=== PATIENT | male | born 1970 | race Hispanic/Latino ===

== ENCOUNTER 2018-10-16 18:13 | Emergency (ER) | payer MEDICARE, OTHER | END 2018-10-16 19:46 | disposition left against medical advice (07) | LOC: ERS 18:13 | DX: Z53.21 Procedure and treatment not carried out due to patient leaving prior to being seen by health care provider (principal) ==

== ENCOUNTER 2018-11-14 11:13 | Outpatient (CLI) | payer MEDICARE, MEDICAID ==
[2018-11-14 13:01] LABS: Mean Corpuscular HGB CONC 32.4 g/dL (32.0-36.0); Mean Corpuscular Hemoglobin 30.5 pg (27.0-31.0); Mean Corpuscular Volume 94.3 fL (78.0-98.0); Mean Platelet Volume 7.3 fL (7.4-10.4); Platelet Count 292 thou/uL (130-400); RBC Distribution Width 14.2 % (11.5-14.5); Red Blood Cell (RBC) Count 4.58 mill/uL (4.70-6.10)
[2018-11-14 13:41] LABS: Anion Gap 16 mmol/L (10-20); BUN (Urea Nitrogen) 21 mg/dL (8.9-20.6); Calc. Creatinine Clearance 0 mL/min (70-130); Calcium 9.7 mg/dL (7.8-10.44); Carbon Dioxide 24 mmol/L (22-29); Chloride 93 mmol/L (98-107); Estimated GFR-MDRD 10; Glucose 184 mg/dL (70-105); Potassium 3.7 mmol/L (3.5-5.1); Sodium 129 mmol/L (136-145)
== END 2018-11-14 11:14 | disposition home or self-care (01) ==
LOC: LABBT 11:13
PROVIDERS: ATTEND Thoracic Surgery (Cardiothoracic Vascular Surgery)
DX: Z01.812 Encounter for preprocedural laboratory examination (principal); N18.6 End stage renal disease
CPT/HCPCS: 80048; 85027

== ENCOUNTER 2018-11-21 12:40 | Outpatient (CLI) | payer MEDICARE, MEDICAID ==
[2018-11-21 13:07] LABS: Hemoglobin 13.8 g/dL (14.0-18.0); Mean Corpuscular HGB CONC 32.7 g/dL (32.0-36.0); Mean Corpuscular Hemoglobin 30.7 pg (27.0-31.0); Mean Corpuscular Volume 93.8 fL (78.0-98.0); Mean Platelet Volume 7.2 fL (7.4-10.4); Platelet Count 284 thou/uL (130-400); RBC Distribution Width 14.1 % (11.5-14.5); White Blood Cell (WBC) Count 8.7 thou/uL (4.8-10.8)
[2018-11-21 13:29] LABS: Anion Gap 14 mmol/L (10-20); BUN (Urea Nitrogen) 23 mg/dL (8.9-20.6); Calc. Creatinine Clearance 0 mL/min (70-130); Calcium 9.4 mg/dL (7.8-10.44); Carbon Dioxide 33 mmol/L (22-29); Chloride 93 mmol/L (98-107); Estimated GFR-MDRD 11; Glucose 334 mg/dL (70-105); Sodium 136 mmol/L (136-145)
== END 2018-11-21 12:41 | disposition home or self-care (01) ==
LOC: LABBT 12:40
PROVIDERS: ATTEND Thoracic Surgery (Cardiothoracic Vascular Surgery)
DX: Z01.812 Encounter for preprocedural laboratory examination (principal); N18.6 End stage renal disease
CPT/HCPCS: 80048; 85027

== ENCOUNTER 2018-11-25 05:45 | Day surgery (SDC) | payer MEDICARE, MEDICAID ==
[2018-11-14 11:39] VITALS: BMI 32.9
[2018-11-25] MEDS ORDERED: Lidocaine 1% (PF) 30 ML VIAL ONE (06:40)
[2018-11-25] MEDS ORDERED: Morphine 2 MG/ML SYRINGE ONE ×2 (07:52→09:57)
[2018-11-25] MEDS ORDERED: HYDROcodone/Acetaminophen 5/325 mg Tablet ONE (09:18)
--- NOTE | 2018-11-25 09:41 | OP ---
DATE OF PROCEDURE: 11/25/2018 PREOPERATIVE DIAGNOSIS: Ischemic and renal dialysis. PROCEDURE: Bilateral upper extremity angiogram. ANESTHESIA: 1% lidocaine, local. FLUORO: 7.9 minutes. CONTRAST: 40 mL. DESCRIPTION OF PROCEDURE: After prepping and draping, 1% lidocaine was used to infiltrate the right groin, where an ultrasound-guided puncture was carried out. Wire was passed, 5-Kiswahili dilator and sheath. A long-angled glide catheter was advanced over a Glidewire and the catheter was then advanced into the left subclavian, doing injections as the catheter was intermittently advanced. After completing the runoff of the left arm, attention was turned to cannulating the right innominate and right subclavian, then right axillary artery and runoff of the right arm was obtained with and without compression of the fistula. Following this, the catheter was withdrawn and once again advanced down the left subclavian into the left brachial artery, where hand visualization was performed. FINDINGS: Normal right innominate subclavian, common carotid origin, axillary, brachial artery. Radial and ulnar arteries were patent and at the level of the wrist, the vessels became small with poor runoff into the hand. Vessels were calcified throughout the arm. Left upper extremity, left subclavian and vertebral arteries were normal. Left axillary and brachial arteries were normal with calcification. Left ulnar artery about 70% stenosis with runoff into the hand through incomplete arches with digital small vessel stenosis uniformly in these digital vessels. Job ID: [id number]
[2018-11-25] MEDS ORDERED: Iopamidol 370 76% 50 ML VIAL FS ONE (10:32)
== END 2018-11-25 14:30 | disposition home or self-care (01) ==
LOC: CCL 05:45
PROVIDERS: ATTEND Thoracic Surgery (Cardiothoracic Vascular Surgery)
PROC: B3111ZZ Fluoroscopy of Right Brachiocephalic-Subclavian Artery using Low Osmolar Contrast (ICD-10-PCS; principal; 2018-11-25)
PROC: B3121ZZ Fluoroscopy of Left Subclavian Artery using Low Osmolar Contrast (ICD-10-PCS; 2018-11-25)
DX: I12.0 Hypertensive chronic kidney disease with stage 5 chronic kidney disease or end stage renal disease (principal); E11.22 Type 2 diabetes mellitus with diabetic chronic kidney disease; N18.6 End stage renal disease; F31.9 Bipolar disorder, unspecified; E11.622 Type 2 diabetes mellitus with other skin ulcer; L98.499 Non-pressure chronic ulcer of skin of other sites with unspecified severity; Z86.73 Personal history of transient ischemic attack (TIA), and cerebral infarction without residual deficits; Z87.891 Personal history of nicotine dependence; Z79.01 Long term (current) use of anticoagulants; Z79.4 Long term (current) use of insulin; Z79.82 Long term (current) use of aspirin; Z79.899 Other long term (current) drug therapy; Z88.8 Allergy status to other drugs, medicaments and biological substances; Z95.810 Presence of automatic (implantable) cardiac defibrillator; Z89.021 Acquired absence of right finger(s); Z99.2 Dependence on renal dialysis
CPT/HCPCS: 36216; 36217; 75716; C1725; C1769; C1887; J1644; J2001; J2270; Q9967

== ENCOUNTER 2018-12-23 13:30 | Day surgery (SDC) | payer MEDICARE, MEDICAID ==
--- NOTE | 2018-12-22 08:10 | HP ---
HISTORY OF PRESENT ILLNESS: Frandy Daniel is a 48-year-old male patient, dialyzing Saturday, Saturday, and Saturday at [facility] in [facility]. The patient has severe PAD. He has a history of narcotic use and we avoided narcotics with him. In February 2015, he had a right Maki fistula, noting a calcified radial artery. The patient more recently has developed problems with poor circulation to his hand. He has undergone amputation of one of the fingers to his hand. Dr. Wolf saw him and an arteriogram performed on 11/25/2018 revealed normal central arterial circulation with very small vessel runoffs in right hand and incomplete palmar arch and small digital vessels. As stated above, the patient has had amputation of one of his fingers of the right hand and has eschar at the tip of the thumb and middle finger. These are indicative of ischemic disease. He has already had partial amputation of one of his fingers. He has good thrill and bruit in his fistula. He has a weak community recreation coordinator, but fairly good mobility of his right hand. Left wrist reveals a palpable radial pulse. Vein mapping of left arm in the past revealed fairly good veins in the left arm. Exam reveals cephalic vein acceptable, but due to calcific vessels and weak radial pulse left, we will plan more proximal fistula in left arm. Plan at this time is ligation of his right Maki fistula, placement of a hemodialysis catheter, and establish one of the left arm fistula more proximal to volar forearm. We did consider possible thigh dialysis graft. The patient has hair on his toes, good femoral pulses bilaterally, and palpable pedal pulses. Plan at this time is to attempt left arm fistula. If he develops an arterial still or ischemia, consideration could be given for a DRIL procedure versus conversion to a thigh graft. Consideration of peritoneal dialysis was discussed, but the patient's dexterity and home conditions do not allow this. MEDICATIONS: 1. Fluoxetine 10 mg a day. 2. Amlodipine 10 mg a day. 3. Dialyvite daily. 4. Levemir insulin 25 units subcu twice a day. 5. Metoprolol 100 mg twice a day. 6. Hydralazine 10 mg t.i.d. 7. Clonidine 0.1 mg twice a day. 8. Atorvastatin 40 mg a day. 9. Aspirin 325 mg a day. 10. Coumadin 10 mg tablet; one-half tablet daily, except two tablets on Saturday, , and Saturday. PAST MEDICAL HISTORY: PAD; hyperlipidemia; hypertension; history of prior strokes; history of narcotic addiction; depression; diabetes; end-stage renal disease, dialyzes Saturday, Saturday, and Saturday at [facility] 4 p.m.; bipolar disorder; AICD; and chronic anticoagulation. ALLERGIES: AMBIEN GI UPSET. PAST SURGICAL HISTORY: Cholecystectomy, pacemaker, defibrillator, hemodialysis catheter, right Maki fistula, and finger amputation. SOCIAL HISTORY: Tobacco, none since 2010, has abused prior to that. Alcohol, none. PHYSICAL EXAMINATION: VITAL SIGNS: Weight 203 pounds, height 66 inches, 32 BMI, blood pressure 111/65, heart rate 60, and temperature 97 degrees. HEAD, EARS, EYES, NOSE, AND THROAT: Unremarkable. LUNGS: Clear to auscultation. CARDIAC: Regular rate and rhythm without murmur or gallop. ABDOMEN: Soft and nontender. Good bowel sounds. No hernias. EXTREMITIES: A right Maki fistula present with good thrill and bruit. Right hand warm, good thrill and bruit. Normal capillary refill. Unhindered hand movement. Eschar at the tip of the thumb and middle finger of right hand. Weak radial and ulnar pulses in left wrist. Good femoral pulses bilaterally. I cannot feel his popliteal pulse, but I can palpate a good dorsalis pedis pulse, left superior to right. ASSESSMENT AND PLAN: Ischemic right hand. We will plan ligation of his fistula as his palmar arch is incomplete and digital vessels are small, severe calcific arterial disease in radial and ulnar artery with tapering vessels distally toward the wrist. I think the only option to salvage his hand is to ligate his right arm fistula. We will plan a left arm fistula and hemodialysis catheter. He is not a candidate for peritoneal dialysis at this time. Job ID: [id number]
[2018-12-22 14:11] VITALS: BMI 32.8
[~2018-12-23 13:30] MED LIST: Heparin 10,000 UNITS/ 10 ML VIAL ONE; Lidocaine 1% PF 5 ML VIAL ONE; PHENYLEPHRINE-NS 100 MCG/ML 10 ML SYRINGE ONE; PROPOFOL 200 MG/20 ML VIAL ONE; ePHEDrine 50 MG/ML VIAL ONE
[2018-12-23 14:16] LABS: #Eosinphils 0.2 thou/uL (0.0-0.7); #Lymphocytes 1.8 thou/uL (1.20-3.40); #Monocytes 0.7 thou/uL (0.11-0.59); #Neutrophils 5.8 thou/uL (1.40-6.50); %Basophils 0.4 % (0.0-1.0); %Eosinophils 2.8 % (0.0-10.0); %Lymphocytes 21.2 % (21.0-51.0); %Monocytes 8.2 % (0.0-10.0); %Neutrophils 67.4 % (42.0-75.0); Hemoglobin 13.2 g/dL (14.0-18.0); Mean Corpuscular HGB CONC 33.1 g/dL (32.0-36.0); Mean Corpuscular Hemoglobin 30.6 pg (27.0-31.0); Mean Corpuscular Volume 92.5 fL (78.0-98.0); Mean Platelet Volume 7.2 fL (7.4-10.4); Platelet Count 299 thou/uL (130-400); RBC Distribution Width 14.2 % (11.5-14.5); Red Blood Cell (RBC) Count 4.33 mill/uL (4.70-6.10); White Blood Cell (WBC) Count 8.6 thou/uL (4.8-10.8)
[2018-12-23 14:35] LABS: Anion Gap 14 mmol/L (10-20); BUN (Urea Nitrogen) 33 mg/dL (8.9-20.6); Calc. Creatinine Clearance 15 mL/min (70-130); Calcium 9.1 mg/dL (7.8-10.44); Carbon Dioxide 31 mmol/L (22-29); Chloride 97 mmol/L (98-107); Estimated GFR-MDRD 8; Glucose 109 mg/dL (70-105); Potassium 4.6 mmol/L (3.5-5.1); Sodium 137 mmol/L (136-145)
[2018-12-23 15:08] LABS: PTT 30.4 SEC (22.9-36.1); Prothrombin Time 13.8 SEC (12.0-14.7)
[2018-12-23] MEDS ORDERED: Lidocaine 2% PF 5 ML VIAL ONE (17:14)
[2018-12-23] MEDS ORDERED: Ioversol 68 % 50 ML VIAL ONE (17:14)
[2018-12-23] MEDS ORDERED: Milrinone 10 MG/10 ML VIAL ONE (17:14)
[2018-12-23] MEDS ORDERED: Heparin 10,000 UNITS/1 ML VIAL ONE (17:14)
[2018-12-23] MEDS ORDERED: Heparin 5,000 UNITS/ML VIAL ONE (17:14)
[2018-12-23] MEDS ORDERED: Sodium Chloride 0.9% 20 ML ONE (17:14)
[2018-12-23] MEDS ORDERED: Bupivacaine HCl 0.5%/Epinephrine 1:200,000/PF 30 ml Vial ONE (17:14)
[2018-12-23] MEDS ORDERED: Protamine Sulfate 50 MG/5 ML VIAL ONE (17:15)
[2018-12-23] MEDS ORDERED: Bupivacaine/Epinephrine 0.25% 30 ML VIAL ONE (17:34)
[2018-12-23] MEDS ORDERED: Fentanyl 100 MCG/2 ML VIAL ONE (18:04)
[2018-12-23] MEDS ORDERED: Midazolam HCl 2 mg/2 ml Vial ONE (18:04)
[2018-12-23] MEDS ORDERED: ePHEDrine/0.9% NaCl/PF SYRINGE 50 mg/10 ml ONE (20:06)
[2018-12-23] MEDS ORDERED: Heparin 10,000 UNITS/ 10 ML VIAL ONE (20:20)
--- NOTE | 2018-12-23 20:39 | RAD ---
CHEST ONE VIEW 12/23/18 HISTORY: Catheter placement. COMPARISON: 11/12/16. FINDINGS: The cardiac silhouette is magnified and enlarged. Pulmonary vasculature is engorged and accentuated b y shallow expiration. Mediastinum is midline with a single lead left subclavian defibrillator. Large caliber right internal jugular central venous catheter is now in place with tips overlying the right atrium. No evidence of pneumothorax. IMPRESSION: Right internal jugular dialysis catheter is in good radiographic position. Cardiomegaly with pulmonary vascular congestion. POS: TERRY
--- NOTE | 2018-12-24 01:25 | OP ---
DATE OF PROCEDURE: 12/23/2018 PREOPERATIVE DIAGNOSES: 1. End-stage renal disease. 2. Peripheral arterial disease. 3. Incomplete palmar arch ischemic right hand arterial steal secondary to peripheral arterial disease. POSTOPERATIVE DIAGNOSES: 1. End-stage renal disease. 2. Peripheral arterial disease. 3. Incomplete palmar arch ischemic right hand arterial steal secondary to peripheral arterial disease. PROCEDURE PERFORMED: Ligation of right Maki fistula. Right IJ cuffed tunneled hemodialysis catheter, fluoroscopy and ultrasound used. Left arm primary fistula, perforating branch antecubital vein to proximal radial artery of excellent quality without apparent arteriosclerotic disease outflow for anatomic reasons, primarily the cephalic vein upper arm secondary to basilic vein, retrograde antecubital vein of good caliber and left intact. ANESTHESIA: General, local 0.25% Marcaine with epinephrine 60 mL mixed with 2% Xylocaine 10 mL. DESCRIPTION OF PROCEDURE: The patient was taken to the operating room, where under general anesthesia, right upper extremity, neck and chest were prepped with ChloraPrep, draped in routine fashion. Ultrasound guidance was used to cannulate the right internal jugular vein with J-wire threaded, trocar catheter removed, skin was enlarged sharply. Stab incision was made over the right chest using a tunneling device, pre-curved [employer] cuffed-tunneled hemodialysis catheter tunneled between the two incisions, placed the fabric cuff beneath the skin exit site, and catheter secured with 2 interrupted sutures of 3-0 nylon and sterile dressings applied. Small and medium size dilators were placed over the J-wire into the internal jugular vein and removed. Dilator and Peel-Away sheath placed with J-wire into the superior vena cava. Dilator and J-wire were removed. Catheter was placed through the Peel-Away sheath. Peel-Away sheath removed. Fluoroscopically, catheter noted to be in good position. Each port aspirated blood and flushed with heparinized saline solution 1000 units heparin per mL indicating volume of the port. Platysma was approximated with 4-0 Monocryl, skin with subdermal 4-0 Monocryl, and [place] glue applied. Sterile dressing applied. Attention was then turned to the right wrist. Incision was made in the right wrist through the old scar and carried down the skin and subcutaneous tissue, Maki fistula dissected free, ligated with 2-0 silk ties. Subcutaneous tissue was approximated with 3-0 Monocryl, skin with subdermal 4-0 Monocryl, and [place] glue applied. Local anesthetic infiltrated. Left upper extremity was then prepared with ChloraPrep and draped in routine fashion. Proximal volar incision was made skin and subcutaneous tissue above the antecubital fossa and antecubital vein was of good caliber. Perforating branch was dissected free and branches were divided and doubly clipped. The patient was given 6000 units of heparin intravenously. Proximal radial artery dissected free and noted to be a good caliber without arteriosclerotic disease. Perforating branch of antecubital vein dissected free and divided between clips and spatulated over branch points and interrogated with coronary dilators passing coronary dilators from 2 mm to 4 mm dilators out the cephalic vein outflow in the upper arm without restriction. It was flushed with heparinized saline solution. Bulldog atraumatic clamp applied and a longitudinal arteriotomy was made in the proximal radial artery after vascular clamp applied. End vein to side proximal radial artery anastomosis created with continuous suture 6-0 Prolene, released the vascular clamps on good hemostasis. Good Doppler signal noted in the cephalic vein outflow upper arm. Hemostasis noted. The patient was given 25 mg of protamine intravenously. Subcutaneous tissue was approximated with 3-0 Monocryl, skin with subdermal 4-0 Monocryl, and [place] glue applied. Job ID: [id number]
== END 2018-12-23 21:40 | disposition home or self-care (01) ==
LOC: SDC 13:30
PROVIDERS: ATTEND Specialist
PROC: 05HM33Z Insertion of Infusion Device into Right Internal Jugular Vein, Percutaneous Approach (ICD-10-PCS; principal; 2018-12-23)
PROC: 03LB0ZZ Occlusion of Right Radial Artery, Open Approach (ICD-10-PCS; 2018-12-23)
PROC: 031C0ZF Bypass Left Radial Artery to Lower Arm Vein, Open Approach (ICD-10-PCS; 2018-12-23)
DX: I12.0 Hypertensive chronic kidney disease with stage 5 chronic kidney disease or end stage renal disease (principal); E10.22 Type 1 diabetes mellitus with diabetic chronic kidney disease; N18.6 End stage renal disease; E10.51 Type 1 diabetes mellitus with diabetic peripheral angiopathy without gangrene; K21.9 Gastro-esophageal reflux disease without esophagitis; F31.9 Bipolar disorder, unspecified; E78.5 Hyperlipidemia, unspecified; F11.11 Opioid abuse, in remission; E66.9 Obesity, unspecified; Z68.32 Body mass index [BMI] 32.0-32.9, adult; Z87.891 Personal history of nicotine dependence; Z86.73 Personal history of transient ischemic attack (TIA), and cerebral infarction without residual deficits; Z79.01 Long term (current) use of anticoagulants; Z79.82 Long term (current) use of aspirin; Z79.899 Other long term (current) drug therapy; Z88.8 Allergy status to other drugs, medicaments and biological substances; Z95.810 Presence of automatic (implantable) cardiac defibrillator; Z99.2 Dependence on renal dialysis
CPT/HCPCS: 36415; 36416; 71045; 76000; 80048; 85025; 85610; 85730; 93005; 93010; C1752; C1769; J0670; J1644; J2001; J2250; J2260; J2704; J2720; J3010; J3490; Q9967

== ENCOUNTER 2019-07-30 12:40 | Day surgery (SDC) | payer MEDICARE, MEDICAID ==
[2019-07-29 11:48] VITALS: BMI 32.4
--- NOTE | 2019-07-30 18:06 | OP ---
DATE OF PROCEDURE: 07/30/2019 PROCEDURE PERFORMED: Colonoscopy. PREMEDICATION: Given by Anesthesiology Department. PREPROCEDURE DIAGNOSIS: Colon screening. POSTPROCEDURE DIAGNOSIS: Normal colon exam. DESCRIPTION OF PROCEDURE: Written consents were obtained prior to procedure. After adequate sedation, rectal exam was performed and was normal. Endoscope was advanced to the cecum. The quality of the bowel prep was good. The appendiceal orifice and ileocecal valve were visualized and appeared normal. The cecum, ascending colon, hepatic flexure, transverse colon, splenic flexure, descending colon, and rectosigmoid colon all appeared normal. Retroflexion was normal. The patient tolerated the procedure well. ASSESSMENT: Normal colon exam. RECOMMENDATION: Repeat colon screening in 10 years, if general health permits and clinically appropriate. Job ID: [id number]
== END 2019-07-30 17:00 | disposition home or self-care (01) ==
LOC: SDC 12:40
PROVIDERS: ATTEND Internal Medicine Gastroenterology
PROC: 0DJD8ZZ Inspection of Lower Intestinal Tract, Via Natural or Artificial Opening Endoscopic (ICD-10-PCS; principal; 2019-07-30)
DX: Z12.11 Encounter for screening for malignant neoplasm of colon (principal); I12.0 Hypertensive chronic kidney disease with stage 5 chronic kidney disease or end stage renal disease; E11.22 Type 2 diabetes mellitus with diabetic chronic kidney disease; N18.6 End stage renal disease; Z79.01 Long term (current) use of anticoagulants; Z79.4 Long term (current) use of insulin; Z79.899 Other long term (current) drug therapy; Z86.73 Personal history of transient ischemic attack (TIA), and cerebral infarction without residual deficits; Z88.8 Allergy status to other drugs, medicaments and biological substances; Z95.810 Presence of automatic (implantable) cardiac defibrillator; Z99.2 Dependence on renal dialysis
CPT/HCPCS: 82962; G0121; 36416

== ENCOUNTER 2019-08-14 23:31 | Observation (INO) | payer MEDICARE, MEDICAID ==
[2019-08-14 23:48] LABS: #Basophils 0.1 thou/uL (0.0-0.2); #Eosinphils 0.3 thou/uL (0.0-0.7); #Lymphocytes 1.3 thou/uL (1.20-3.40); #Monocytes 0.7 thou/uL (0.11-0.59); #Neutrophils 4.4 thou/uL (1.40-6.50); %Basophils 1.1 % (0.0-1.0); %Eosinophils 4.5 % (0.0-10.0); %Lymphocytes 18.8 % (21.0-51.0); %Monocytes 10.2 % (0.0-10.0); %Neutrophils 65.4 % (42.0-75.0); Hemoglobin 9.9 g/dL (14.0-18.0); Mean Corpuscular HGB CONC 33.9 g/dL (32.0-36.0); Mean Corpuscular Hemoglobin 31.3 pg (27.0-31.0); Mean Corpuscular Volume 92.4 fL (78.0-98.0); Mean Platelet Volume 7.7 fL (7.4-10.4); Platelet Count 274 thou/uL (130-400); Red Blood Cell (RBC) Count 3.18 mill/uL (4.70-6.10); White Blood Cell (WBC) Count 6.7 thou/uL (4.8-10.8)
--- NOTE | 2019-08-14 23:53 | CT ---
CT BRAIN WITHOUT CONTRAST: 08/24/19 HISTORY: Altered mental status, confusion, vision disturbance. FINDINGS: Comparison made with exam of 04/14/15. Large area of encephalomalacia is seen in the left cerebellar hemisphere. There is encephalomalacia l ikely due to old infarction in the left parietal lobe. The ventricular size is appropriate and the b asilar cisterns patent. No evidence of acute infarct, hemorrhage, midline shift, or abnormal extra-ax ial fluid collections are seen. The bony calvarium is intact. The visualized paranasal sinuses and m astoids air cells are well aerated. IMPRESSION: No CT evidence of acute intracranial process. Discussed over the telephone with ER physician, Dr. Jing Traylor at 11:44 p.m. POS: TERRY
[2019-08-14 23:58] LABS: INR-International Normal Ratio 2.1; PTT 39.6 SEC (22.9-36.1); Prothrombin Time 23.4 SEC (12.0-14.7)
[2019-08-15 00:10] LABS: ALT (SGPT) 25 U/L (8-55); AST (SGOT) 28 U/L (5-34); Alkaline Phosphatase 107 U/L (40-110); Anion Gap 17 mmol/L (10-20); BUN (Urea Nitrogen) 48 mg/dL (8.9-20.6); Bilirubin, Total 0.4 mg/dL (0.2-1.2); CK (CPK) 323 U/L (30-200); Calc. Creatinine Clearance 0 mL/min (70-130); Calcium 9.5 mg/dL (7.8-10.44); Carbon Dioxide 27 mmol/L (22-29); Chloride 101 mmol/L (98-107); Estimated GFR-MDRD 7; Globulin 2.7 g/dL (2.4-3.5); Glucose 143 mg/dL (70-105); Potassium 4.2 mmol/L (3.5-5.1); Protein, Total 6.7 g/dL (6.0-8.3); Sodium 141 mmol/L (136-145)
[2019-08-15 00:28] LABS: CKMB 7.4 ng/mL (0-6.6)
--- NOTE | 2019-08-15 01:17 | PDOC.FPRHP ---
- History of Present Illness Chief Complaint: Slurred Speech. History of Present Illness: 49yo CM with h/o DMII, HTN, ESRD on HD, and prior CVAs was brought in tonight by family due to concern for slurred speech. Dad brought patient in due to concern for him being restless and not being able to understand his speech. Dad reports he went to bed around 7 and states he fell out of bed twice around 8pm and was confused and having slurred speech. Dad states that he never falls out of bed. Pt reports episode like this prior about a week ago that occured at night time and resolved upon wakening the next morning. Family in room states the left side of his face was slightly droopy when they brought him in but he is doing better now. Family and pt states he is back at baseline mentation with no slurred speech. Pt has reported pain in his dialysis fistula last Saturday. Denies any episodes since. Pt denies any GI bleeding. Pt denies any abnormal bleeding/bruising. ED Course: ASA, CT. Sxs resolved. - Allergies/Adverse Reactions Allergies Allergy/AdvReac Type Severity Reaction Status Date / Time zolpidem tartrate Allergy Verified 08/15/19 02:18 [From Ambien] - Home Medications Medication Instructions Recorded Confirmed Type Metoprolol Tartrate [Lopressor] 100 mg PO BID 12/25/13 08/15/19 History Amlodipine [Norvasc] 10 mg PO DAILY #0 tab 12/29/13 08/15/19 Rx FLUoxetine HCl [Prozac] 10 mg PO HS 05/01/14 08/15/19 History Aspirin 325 mg PO DAILY #0 tab 02/19/15 08/15/19 Rx Atorvastatin Calcium [Lipitor] 40 mg PO HS #0 tab 03/03/15 08/15/19 Rx Insulin Detemir [Levemir Flextouch] 17 unit SQ BID 07/14/15 08/15/19 History Warfarin Sodium [Coumadin] 10 mg PO DAILY 12/17/16 08/15/19 History Folic Acid/Vit B Complex and C 1 tablet PO DAILY 11/14/18 08/15/19 History [Dialyvite] Calcium Acetate 3,340 mg PO QAM-WM 08/15/19 08/15/19 History - History PMHx: DMII, previous CVA, ESRD on HD, HTN, HLD, Depression, Bipolar PSHx: AICD for previous Vtach, Adore, vasectomy FHx: PGF with colon cancer, parents with multiple polyps. Social: Denies any tob, etoh, illicits. Father is primary caregiver. - Review of Systems General: reports: other (restless). denies: fever/chills, weight/appetite/ sleep changes, night sweats Eyes: denies: vision changes ENT: denies: nasal congestion, rhinorrhea Respiratory: denies: cough, congestion, shortness of breath, exercise intolerance Cardiovascular: denies: chest pain, palpitation, edema, paroxysmal nocturnal dyspnea, orthopnea Gastrointestinal: denies: nausea, vomiting, diarrhea, constipation, abdominal pain Genitourinary: denies: incontinence, dysuria, polyuria, discharge Skin: denies: rashes, lesions, jaundice Musculoskeletal: denies: pain, tenderness, stiffness, swelling, arthritis/ arthralgias Neurological: reports: weakness. denies: numbness, syncope, seizure Psychological: denies: anxiety, depression - Vital signs BP: [159/79] HR: [67] RR: [18] Tmax: [97.6] Pox: [96]% on [RA] Wt: [92kg] - Physical Exam Constitutional: NAD, awake, alert and oriented, well developed HEENT: PERRLA, EOMI, conjunctiva clear, no scleral icterus, grossly normal vision, grossly normal hearing, MMM Neck: supple, trachea midline Heart: RRR, normal S1/S2, no murmurs/rubs/gallops, pulses present (1+ BL LE), no edema Lungs: CTAB, no respiratory distress, good air movement, no rales/rhonchi, no wheezing Abdomen: soft, non-tender, bowel sounds present Musculoskeletal: normal structure, normal tone, other (5/5 strenght throughout) Neurological: no focal deficit, CN II-XII intact, normal sensation, other (no dysmetria or dysdiadokinesia) Skin: no rash/lesions Heme/Lymphatic: no purpura, no petechia, other (mild bruising around left dialysis fistula) Psychiatric: intact recent and remote memory FMR H&P: Results - Labs Result Diagrams: 08/14/19 23:36 08/14/19 23:36 Lab results: WBC 6.7 thou/uL (4.8-10.8) 08/14/19 23:36 Hgb 9.9 g/dL (14.0-18.0) L 08/14/19 23:36 Hct 29.4 % (42.0-52.0) L 08/14/19 23:36 MCV 92.4 fL (78.0-98.0) 08/14/19 23:36 Plt Count 274 thou/uL (130-400) 08/14/19 23:36 Neutrophils % 65.4 % (42.0-75.0) 08/14/19 23:36 Sodium 141 mmol/L (136-145) 08/14/19 23:36 Potassium 4.2 mmol/L (3.5-5.1) 08/14/19 23:36 Chloride 101 mmol/L (98-107) 08/14/19 23:36 Carbon Dioxide 27 mmol/L (22-29) 08/14/19 23:36 BUN 48 mg/dL (8.9-20.6) H 08/14/19 23:36 Creatinine 7.86 mg/dL (0.7-1.3) H 08/14/19 23:36 Glucose 143 mg/dL (70-105) H 08/14/19 23:36 Calcium 9.5 mg/dL (7.8-10.44) 08/14/19 23:36 Total Bilirubin 0.4 mg/dL (0.2-1.2) 08/14/19 23:36 AST 28 U/L (5-34) 08/14/19 23:36 ALT 25 U/L (8-55) 08/14/19 23:36 Alkaline Phosphatase 107 U/L (40-110) 08/14/19 23:36 Creatine Kinase 323 U/L (30-200) H 08/14/19 23:36 CK-MB (CK-2) 7.4 ng/mL (0-6.6) H* 08/14/19 23:36 Serum Total Protein 6.7 g/dL (6.0-8.3) 08/14/19 23:36 Albumin 4.0 g/dL (3.5-5.0) 08/14/19 23:36 - Radiology Interpretation CT scan - head Status: image reviewed by me, report reviewed by me (No CT evidence of acute intracranial process) FMR H&P: A/P - Problem List (1) TIA (transient ischemic attack) Current Visit: No Status: Acute Code(s): G45.9 - TRANSIENT CEREBRAL ISCHEMIC ATTACK, UNSPECIFIED (2) Bipolar disorder Current Visit: No Status: Chronic Code(s): F31.9 - BIPOLAR DISORDER, UNSPECIFIED (3) Diabetes mellitus type 2 Current Visit: No Status: Chronic Code(s): E11.9 - TYPE 2 DIABETES MELLITUS WITHOUT COMPLICATIONS (4) ESRD (end stage renal disease) on dialysis Current Visit: No Status: Chronic Code(s): N18.6 - END STAGE RENAL DISEASE; Z99.2 - DEPENDENCE ON RENAL DIALYSIS (5) Essential hypertension Current Visit: No Status: Chronic Code(s): I10 - ESSENTIAL (PRIMARY) HYPERTENSION (6) Hyperlipidemia Current Visit: No Status: Chronic Code(s): E78.5 - HYPERLIPIDEMIA, UNSPECIFIED - Plan 49yo CM with h/o DMII, HTN, ESRD on HD, and prior CVAs was brought in tonight by family due to concern for slurred speech and confusion, admitted to stroke obs for TIA vs CVA. #TIA vs CVD - onset of sxs at 2000 with confusion, slurred speech, mild L-facial droop. Sxs resolved within 1 hour and no recurrence - Records reviewed, h/o prior CVAs 2/2 suspected cardioembolic events with runs of Vtach. AICD in place, on anticoagulation with warfarin. - INR 2.2, will cont home warfarin dose - follows with Coumadin clinic - CT head - no acute bleed or intracranial process - CTA head/neck pending - MRI and ECHO in AM - previous ECHO in 2016 EF 50-55% with grade 1 diastolic dys - TSH and FLP in AM - Stroke checks on floor - Permissive HTN of <1 80/110 for first 48 hours - cont daily ASA - ABCD2 score of 5 - moderate risk #ESRD on HD - Dr. Taveras, M/W/F dialysis - cont home vitatmins #HLD - On Atorva 40, checking FLP, consider increase to Atorva 80 #HTN - On norvasc and metoprolol, holding at this time - Permissive HTn of <180/110 for first 48 hours then restart home meds #DMII - Well-controlled with A1C in clinic of 5.9 - Cont levemir 17u BID, ACHS accuchecks, hyperglycemic protocol with mild SSI #Depression/Bipolar - mood stable, cont home prozac Code: Full Diet: Renal high protein/CC IVF: SL VTE: Warfarin PCP: Tenisha Leiva ([facility]) Disposition/LOS: Admit to Stroke obs for TIA workup. MRI in AM. Permissive HTN. Anticipate hospitalization <48 hours. FMR H&P: Upper Level - Pertinent history I was present with the international trade analyst, Dr. Tenisha Leiva. I scribed the above HPI. I made edits as needed. See above. - Pertinent findings General: Pt alert and oriented. No distress noted. Cardio: RRR, no murmurs or gallops Resp: CTA-B, no wheezes or crackles Ext: No edema note - Plan Date/Time: 08/15/19 0115 I, Carrillo Renteria, PGY-3, have evaluated this patient and agree with findings/ plan as outlined by international trade analyst resident. Pertinent changes/additions are listed here. See above for detailed plan. I made edits as needed. At this time we will admit patient for TIA/Stroke workup. Pt has hx of CVA in the past. Pt defecits at this time seem to have resolved. Will admit to stroke. Will monitor on Tele. Will trend trops. Will get MRI in the morning. Will have PT/OT evaluate. Will hold BP meds and allow for permissive HTN.
[2019-08-15] MEDS ORDERED: Dextrose 50% Abboject 50 ML SYRINGE SLOW IVP PRN (02:08)
[2019-08-15] MEDS ORDERED: Acetaminophen 325 MG TAB PO PRN (02:08)
[2019-08-15] MEDS ORDERED: Dextrose 5% in Water 1,000 ML IV PRN (02:08)
[2019-08-15] MEDS ORDERED: HumaLOG 300 UNITS/3 ML VIAL SC PRN ×2 (02:08)
[2019-08-15] MEDS ORDERED: Calcium Carbonate 500 MG ChewTAB PO PRN (02:08)
[2019-08-15] MEDS ORDERED: hydrALAZINE 20 MG/ML VIAL SLOW IVP PRN (02:08)
[2019-08-15 02:28] VITALS: BMI 32.5
[2019-08-15 05:15] LABS: #Basophils 0.1 thou/uL (0.0-0.2); #Eosinphils 0.4 thou/uL (0.0-0.7); #Lymphocytes 1.2 thou/uL (1.20-3.40); #Monocytes 0.8 thou/uL (0.11-0.59); #Neutrophils 4.1 thou/uL (1.40-6.50); %Basophils 1.2 % (0.0-1.0); %Eosinophils 5.5 % (0.0-10.0); %Lymphocytes 18.1 % (21.0-51.0); %Monocytes 12.5 % (0.0-10.0); %Neutrophils 62.8 % (42.0-75.0); Hemoglobin 9.6 g/dL (14.0-18.0); Mean Corpuscular HGB CONC 33.6 g/dL (32.0-36.0); Mean Corpuscular Hemoglobin 31.3 pg (27.0-31.0); Mean Corpuscular Volume 93.2 fL (78.0-98.0); Mean Platelet Volume 7.8 fL (7.4-10.4); Platelet Count 261 thou/uL (130-400); RBC Distribution Width 14.2 % (11.5-14.5); Red Blood Cell (RBC) Count 3.05 mill/uL (4.70-6.10); White Blood Cell (WBC) Count 6.6 thou/uL (4.8-10.8)
[2019-08-15 05:21] LABS: INR-International Normal Ratio 2.5
[2019-08-15 05:39] LABS: ALT (SGPT) 23 U/L (8-55); AST (SGOT) 24 U/L (5-34); Albumin 3.5 g/dL (3.5-5.0); Alkaline Phosphatase 90 U/L (40-110); Anion Gap 13 mmol/L (10-20); BUN (Urea Nitrogen) 49 mg/dL (8.9-20.6); Bilirubin, Total 0.3 mg/dL (0.2-1.2); Calc. Creatinine Clearance 14 mL/min (70-130); Calcium 9.1 mg/dL (7.8-10.44); Carbon Dioxide 27 mmol/L (22-29); Cardiac Risk 2.8 (Less than 4.5); Chloride 101 mmol/L (98-107); Cholesterol 94 mg/dl (< 200 Desired); Estimated GFR-MDRD 7; Globulin 2.8 g/dL (2.4-3.5); Glucose 140 mg/dL (70-105); HDL Cholesterol 34 mg/dL (>60 Neg Risk); LDL Cholesterol, Calculated 39 mg/dL; Potassium 4.2 mmol/L (3.5-5.1); Protein, Total 6.3 g/dL (6.0-8.3); Sodium 137 mmol/L (136-145); Triglycerides 105 mg/dL (Less than 150)
[2019-08-15] MEDS ORDERED: INSULIN DETEMIR 17 UNIT SQ SCH (09:00)
[2019-08-15] MEDS: Insulin Glargine 17 UNITS in Pre-Filled Syringe 1 EACH SC SCH ×2 (09:17→21:23)
[2019-08-15] MEDS: Folic Acid/Vit B Comp W-C PO SCH (09:18)
[2019-08-15] MEDS: Aspirin 325 MG TAB PO SCH (09:18)
[2019-08-15] MEDS: Calcium Acetate 667 MG CAP PO SCH (09:18)
--- NOTE | 2019-08-15 14:41 | HP ---
Please see the history and physical done by Dr. Carrillo Renteria and Dr. Leiva for which I agree. The patient was seen, evaluated, and discussed with the residents by bedside and examined. Please see also the progress note by Dr. Huang. HISTORY OF PRESENT ILLNESS: This is a very poor historian, 49-year-old gentleman, who apparently was brought to the ER because mental status was not baseline. Maybe he is falling out of bed, maybe he is little bit more confused or slurring in his speech. He does have history of stroke before I believe and is a vasculopath and is on dialysis on Saturday, Saturday, Saturday, but also has psychiatric history including bipolar disease. He has an AICD and it looks like it was done for ventricular tachycardia in the past, but it sounds like echos have all been normal otherwise. He is a diabetic as well, but does not sound like his sugar was low. Mental status is back to baseline, although even at baseline he is not the best historian. It is unclear if this is a small TIA, but is being observed for TIA, ALLERGIES: ALL PER THE RESIDENT'S HISTORY AND PHYSICAL. HOME MEDICATION: All per the resident's history and physical. PAST MEDICAL HISTORY: All per the resident's history and physical. PAST SURGICAL HISTORY: All per the resident's history and physical. FAMILY HISTORY: All per the resident's history and physical. SOCIAL HISTORY: All per the resident's history and physical. REVIEW OF SYSTEMS: All per the resident's history and physical. PHYSICAL EXAMINATION: GENERAL: Blood pressure is borderline. Alert to name, to place, time, etc. He is not the best historian on the medical history. I do not appreciate any neurologic deficits on exam at all. Carotid sound clear. CHEST: Clear. HEART: Regular rate and rhythm without any major ectopy or murmurs. ABDOMEN: Benign. NEUROLOGIC: Currently, the rest of neuro exam is normal. LABORATORY DATA: Lab workup reviewed, elevated creatinine as he is a dialysis patient. CT of the head looked fine. ASSESSMENT AND PLAN: Possible change in mental status. Possible transient ischemic attack versus low blood sugar him versus psychiatric issue, etc. Plan is continue observation, doing a carotid ultrasound. Check an echocardiogram. I am going to look into if we can do an MRI of the brain or not depending on if his AICD is compatible with an MRI. CT of the head was normal. If everything comes back pretty normal, I really do not see any reason why we cannot send him as it does sound like he is back to baseline and the symptoms are extremely vague. He is already on Coumadin for anticoagulation. Job ID: [id number]
[2019-08-15] MEDS ORDERED: Warfarin Sodium 10 MG TAB PO SCH (17:00)
[2019-08-15] MEDS ORDERED: Atorvastatin Calcium 40 MG TAB PO SCH (21:00)
[2019-08-15] MEDS ORDERED: FLUoxetine HCl 10 MG CAP PO SCH (21:00)
[2019-08-16 04:57] LABS: #Basophils 0.1 thou/uL (0.0-0.2); #Eosinphils 0.5 thou/uL (0.0-0.7); #Lymphocytes 1.7 thou/uL (1.20-3.40); #Monocytes 0.7 thou/uL (0.11-0.59); #Neutrophils 4.9 thou/uL (1.40-6.50); %Basophils 0.7 % (0.0-1.0); %Eosinophils 6.5 % (0.0-10.0); %Lymphocytes 21.2 % (21.0-51.0); %Monocytes 9.3 % (0.0-10.0); %Neutrophils 62.4 % (42.0-75.0); Hemoglobin 9.1 g/dL (14.0-18.0); Mean Corpuscular HGB CONC 34.1 g/dL (32.0-36.0); Mean Corpuscular Hemoglobin 31.7 pg (27.0-31.0); Mean Corpuscular Volume 93.2 fL (78.0-98.0); Mean Platelet Volume 7.8 fL (7.4-10.4); Platelet Count 245 thou/uL (130-400); RBC Distribution Width 14.4 % (11.5-14.5); Red Blood Cell (RBC) Count 2.88 mill/uL (4.70-6.10); White Blood Cell (WBC) Count 7.9 thou/uL (4.8-10.8)
[2019-08-16 05:02] LABS: INR-International Normal Ratio 2.9
[2019-08-16 05:17] LABS: ALT (SGPT) 22 U/L (8-55); AST (SGOT) 21 U/L (5-34); Albumin 3.6 g/dL (3.5-5.0); Alkaline Phosphatase 68 U/L (40-110); Anion Gap 16 mmol/L (10-20); BUN (Urea Nitrogen) 62 mg/dL (8.9-20.6); Bilirubin, Total 0.3 mg/dL (0.2-1.2); Calc. Creatinine Clearance 13 mL/min (70-130); Calcium 9.1 mg/dL (7.8-10.44); Carbon Dioxide 24 mmol/L (22-29); Chloride 98 mmol/L (98-107); Estimated GFR-MDRD 6; Globulin 2.7 g/dL (2.4-3.5); Glucose 63 mg/dL (70-105); Potassium 4.3 mmol/L (3.5-5.1); Protein, Total 6.3 g/dL (6.0-8.3); Sodium 134 mmol/L (136-145)
--- NOTE | 2019-08-16 05:56 | PDOC.FM ---
- Subjective Subjective: Pt only complaint this morning is feeling sleepy. States he got good rest last night. Denies any difficulty with strength or speech currently. Is agreeable with going home after carotid US if normal. - Objective Vital Signs & Weight: Vital Signs (12 hours) Temp Pulse Resp BP BP Pulse Ox 08/16/19 04:19 72 157/88 H 08/16/19 03:33 97.9 F 71 20 160/100 H 94 L 08/15/19 23:34 97.7 F 76 20 149/81 H 98 08/15/19 19:50 97.2 F L 69 20 172/85 H 99 Weight Admit Weight 91.626 kg Weight 92.85 kg I&O: 08/14/19 08/15/19 08/16/19 06:59 06:59 06:59 Intake Total 360 Balance 360 Result Diagrams: 08/16/19 04:48 08/16/19 04:48 Phys Exam - Physical Examination Constitutional: NAD HEENT: moist MMs, sclera anicteric Neck: full ROM Respiratory: no wheezing, no rales, no rhonchi, clear to auscultation bilateral Cardiovascular: RRR, no significant murmur Gastrointestinal: soft, non-tender Musculoskeletal: no edema, pulses present Neurological: non-focal, normal sensation, moves all 4 limbs Lymphatic: no nodes Psychiatric: normal affect Skin: no rash, cap refill <2 seconds Dx/Plan (1) TIA (transient ischemic attack) Code(s): G45.9 - TRANSIENT CEREBRAL ISCHEMIC ATTACK, UNSPECIFIED Status: Acute (2) Bipolar disorder Code(s): F31.9 - BIPOLAR DISORDER, UNSPECIFIED Status: Chronic (3) Diabetes mellitus type 2 Code(s): E11.9 - TYPE 2 DIABETES MELLITUS WITHOUT COMPLICATIONS Status: Chronic (4) ESRD (end stage renal disease) on dialysis Code(s): N18.6 - END STAGE RENAL DISEASE; Z99.2 - DEPENDENCE ON RENAL DIALYSIS Status: Chronic (5) Essential hypertension Code(s): I10 - ESSENTIAL (PRIMARY) HYPERTENSION Status: Chronic - Plan Plan: 49yo CM with h/o DMII, HTN, ESRD on HD, and prior CVAs was brought in tonight by family due to concern for slurred speech and confusion, admitted to stroke obs for TIA vs CVA. #TIA vs CVD - onset of sxs at 1999 with confusion, slurred speech, mild L-facial droop. Sxs resolved within 1 hour and no recurrence - Records reviewed, h/o prior CVAs 2/2 suspected cardioembolic events with runs of Vtach. AICD in place, on anticoagulation with warfarin. - INR 2.2, will cont home warfarin dose - follows with Coumadin clinic - CT head - no acute bleed or intracranial process - Echo yesterday EF 55-60%, normal size and motion - previous ECHO in 2016 EF 50 -55% with grade 1 diastolic dys - cont daily ASA - Carotid US pending #ESRD on HD - Dr. Taveras, M/W/F dialysis - cont home vitatmins #HLD - On Atorva 40, checking FLP, consider increase to Atorva 80 #HTN - On norvasc and metoprolol, holding at this time - Permissive HTn of <180/110 for first 48 hours then restart home meds #DMII - Well-controlled with A1C in clinic of 5.9 - Cont levemir 17u BID, ACHS accuchecks, hyperglycemic protocol with mild SSI #Depression/Bipolar - mood stable, cont home prozac Code: Full Diet: Renal high protein/CC IVF: SL VTE: Warfarin PCP: Tenisha Leiva ([facility]) Disposition/LOS: Admit to Stroke obs for TIA workup. Carotid US today. Anticipate discharge later today.
[2019-08-16] MEDS: Calcium Acetate 667 MG CAP PO SCH (09:08)
[2019-08-16] MEDS: Aspirin 325 MG TAB PO SCH (09:08)
[2019-08-16] MEDS: Insulin Glargine 17 UNITS in Pre-Filled Syringe 1 EACH SC SCH (09:09)
[2019-08-16] MEDS: Folic Acid/Vit B Comp W-C PO SCH (09:09)
--- NOTE | 2019-08-16 10:46 | ULT ---
CAROTID ULTRASOUND: HISTORY: TIA versus CVA. COMPARISON: 07/01/2014. TECHNIQUE: Briones scale, color, Doppler imaging, and spectral waveform analysis was performed of the carotid and v ertebral arteries. FINDINGS: RIGHT CAROTID: No significant atherosclerotic disease. Peak systolic velocity of the common carotid artery was 78.5 cm/s. Peak systolic velocity of the internal carotid artery is 73.5 cm/s. Systolic ICA to CCA rati o is 0.94. LEFT CAROTID: Minimal atherosclerotic plaque in the common carotid artery. Peak systolic velocity of the common ca rotid artery is 102.5 cm/s. Peak systolic velocity of the internal carotid artery is 67.5 cm/s. Sys tolic ICA to CCA ratio is 0.68. Antegrade flow in bilateral vertebral arteries. IMPRESSION: No sonographic evidence of hemodynamically significant stenosis. POS: TERRY
--- NOTE | 2019-08-16 12:10 | PRG ---
DATE OF SERVICE: 08/16/2019 Please see the note of Dr. Pina for which I agree. The patient was seen, evaluated, discussed, and examined with the residents by bedside. The patient is being worked up for altered mental status, confusion. It sounds like potentially he was not sleeping for a few nights before this occurred, so a lot of this may be actually more psychiatric and it sounds like does have bipolar disease. Nonetheless, he states he feels completely fine here in the hospital. So far the workup has been completely normal. Waiting on a carotid ultrasound, as long as it is normal, he can go as exam was completely normal and mental state seems fine. He is not showing any signs or symptoms of cachorro or hypomania. Job ID: [id number]
[2019-08-16 16:20] VITALS: BP 176/90; TEMP 97.2
--- NOTE | 2019-08-16 23:18 | DIS ---
DATE OF ADMISSION: 08/15/2019 DATE OF DISCHARGE: 08/16/2019 RESIDENT: Arnoldo Pina DO ADMITTING ATTENDING: Tashi Jin MD DISCHARGE ATTENDING: Tashi Jin MD CONSULTS: PT, OT, Speech. PROCEDURES: None. PRIMARY DIAGNOSES: 1. Transient ischemic attack. 2. Bipolar disorder. 3. Type 2 diabetes. SECONDARY DIAGNOSES: 1. End-stage renal disease. 2. Essential hypertension. 3. Hyperlipidemia. DISCHARGE MEDICATIONS: 1. Lopressor 100 mg b.i.d. 2. Norvasc 10 mg daily. 3. Fluoxetine 10 mg at bedtime. 4. Aspirin 325 mg daily. 5. Atorvastatin 40 mg at bedtime. 6. Levemir 17 units subcu b.i.d. 7. Coumadin 10 mg daily. 8. Daily-Hermann 1 tablet daily. 9. Calcium acetate 668 mg tablets, take 3340 mg p.o. q.a.m. HISTORY OF PRESENT ILLNESS AND HOSPITAL COURSE: A 49-year-old male with history of type 2 diabetes, hypertension, ESRD, on hemodialysis, and prior CVAs, was brought to the hospital by family due to concern for slurred speech. They stated they were not able to understand his speech. When the patient woke up, the patient had fallen out of bed twice during the night. Reported episode similar to this a week ago that occurred at night and resolved upon awakening the next morning. They also felt the patient's left side of his face was slightly droopy when they brought him in, but was better by the time that he was evaluated by our team. The patient received aspirin upon arrival. Head CT done in the emergency department was negative for any acute intracranial process. The patient was admitted to the stroke floor for observation and further workup. The patient had an echocardiogram performed that showed left ventricular with normal size and an ejection fraction of 55% to 60%. He also received a carotid Doppler study that showed no sonographic evidence of hemodynamically significant stenosis. The patient remained asymptomatic throughout the remainder of his stay. A discussion was had with the patient and family regarding these findings. The patient was discharged home and instructed to continue his full dose aspirin daily. MRI studies could not be performed due to the patient having an AICD in place. The patient could not recall why he has an AICD and could not be established upon review of the patient's records. DISPOSITION: Stable. DISCHARGE INSTRUCTIONS: 1. Location: Home. 2. Diet: Carb conscious/heart healthy. 3. Activity: As tolerated, no restrictions. 4. Followup: With PCP, Dr. Leiva within 7 days. Job ID: [id number]
== END 2019-08-16 16:45 | disposition home or self-care (01) ==
LOC: ERS 23:31 → 2SE 08-15 02:01
PROVIDERS: ADMIT Family Medicine; ATTEND Family Medicine
DX: G45.9 Transient cerebral ischemic attack, unspecified (principal); F31.9 Bipolar disorder, unspecified; I12.0 Hypertensive chronic kidney disease with stage 5 chronic kidney disease or end stage renal disease; E11.22 Type 2 diabetes mellitus with diabetic chronic kidney disease; N18.6 End stage renal disease; E78.5 Hyperlipidemia, unspecified; I69.311 Memory deficit following cerebral infarction; Z79.01 Long term (current) use of anticoagulants; Z79.4 Long term (current) use of insulin; Z79.899 Other long term (current) drug therapy; Z88.8 Allergy status to other drugs, medicaments and biological substances; Z99.2 Dependence on renal dialysis; Z95.810 Presence of automatic (implantable) cardiac defibrillator
CPT/HCPCS: 70450; 80053 ×2; 80061; 82550; 82553; 82962 ×3; 84484; 85025 ×2; 85610 ×3; 85730; 93005; 93306; 93880; 97116; 97139 ×4; 97535; 99285; G0378 ×2; 36415; 36416; 84443; J1815

== ENCOUNTER 2019-12-21 19:30 | Outpatient (CLI) | payer MEDICARE, MEDICAID | END 2019-12-21 19:31 | disposition home or self-care (01) | LOC: SLEEPLAB 19:30 | PROVIDERS: ATTEND Family Medicine | DX: G47.33 Obstructive sleep apnea (adult) (pediatric) (principal); I12.0 Hypertensive chronic kidney disease with stage 5 chronic kidney disease or end stage renal disease; E11.22 Type 2 diabetes mellitus with diabetic chronic kidney disease; N18.6 End stage renal disease; G47.31 Primary central sleep apnea; Z99.2 Dependence on renal dialysis | CPT/HCPCS: 95811 ==

== ENCOUNTER 2020-01-31 19:30 | Outpatient (CLI) | payer MEDICARE, MEDICAID | END 2020-01-31 19:31 | disposition home or self-care (01) | LOC: SLEEPLAB 19:30 | PROVIDERS: ATTEND Family Medicine | DX: G47.33 Obstructive sleep apnea (adult) (pediatric) (principal); G47.10 Hypersomnia, unspecified; G47.31 Primary central sleep apnea; E66.9 Obesity, unspecified; Z68.33 Body mass index [BMI] 33.0-33.9, adult | CPT/HCPCS: 95811 ==

== ENCOUNTER 2021-03-20 00:46 | Inpatient (IN) | payer MEDICARE, MEDICAID ==
[2021-03-20 01:11] LABS: #Basophils 0.1 thou/uL (0.0-0.2); #Eosinphils 0.3 thou/uL (0.0-0.7); #Lymphocytes 1.1 thou/uL (1.20-3.40); #Monocytes 0.5 thou/uL (0.11-0.59); #Neutrophils 6.1 thou/uL (1.40-6.50); %Basophils 0.7 % (0.0-1.0); %Eosinophils 4.2 % (0.0-10.0); %Lymphocytes 13.3 % (21.0-51.0); %Monocytes 6.5 % (0.0-10.0); %Neutrophils 75.4 % (42.0-75.0); Hemoglobin 9.9 g/dL (14.0-18.0); Mean Corpuscular Hemoglobin 32.2 pg (27.0-31.0); Mean Corpuscular Volume 94.8 fL (78.0-98.0); Mean Platelet Volume 8.3 fL (7.4-10.4); Platelet Count 223 thou/uL (130-400); RBC Distribution Width 13.6 % (11.5-14.5); Red Blood Cell (RBC) Count 3.06 mill/uL (4.70-6.10)
[2021-03-20 01:32] LABS: ALT (SGPT) 27 U/L (8-55); AST (SGOT) 18 U/L (5-34); Albumin 3.5 g/dL (3.5-5.0); Alkaline Phosphatase 85 U/L (40-110); Anion Gap 18 mmol/L (10-20); BUN (Urea Nitrogen) 71 mg/dL (8.4-25.7); Bilirubin, Total 0.3 mg/dL (0.2-1.2); CK (CPK) 198 U/L (30-200); Calc. Creatinine Clearance 0 mL/min (70-130); Calcium 9.2 mg/dL (7.8-10.44); Carbon Dioxide 25 mmol/L (22-29); Chloride 101 mmol/L (98-107); Glucose 157 mg/dL (70-105); Lipase 205 U/L (8-78); Potassium 5.2 mmol/L (3.5-5.1); Protein, Total 6.5 g/dL (6.0-8.3); Sodium 139 mmol/L (136-145)
[2021-03-20 02:12] LABS: CKMB 5.4 ng/mL (0-6.6)
[2021-03-20] MEDS ORDERED: Aspirin 325 MG TAB ONE (02:39)
[2021-03-20] MEDS ORDERED: Nitroglycerin 0.4 MG TAB 1 EACH ONE (02:55)
[2021-03-20 03:31] LABS: Prothrombin Time 31.7 sec (12.0-14.7)
[2021-03-20] MEDS ORDERED: Ondansetron PF 4 MG/2 ML Vial IVP PRN (03:53)
[2021-03-20] MEDS ORDERED: Acetaminophen 325 MG TAB PO PRN (03:53)
[2021-03-20] MEDS ORDERED: Ondansetron ODT 4 MG TAB PO PRN (03:53)
[2021-03-20 05:04] LABS: Troponin I 0.524 ng/mL (< 0.028)
[2021-03-20] MEDS ORDERED: Heparin 10,000 UNITS/ 10 ML VIAL SLOW IVP SCH (06:00)
[2021-03-20 06:25] LABS: Platelet Count 224 thou/uL (130-400)
[2021-03-20] MEDS: Heparin 25,000 units/D5W 500 ML IVPB SCH (07:21)
[2021-03-20 08:00] LABS: Troponin I 1.048 ng/mL (< 0.028)
[2021-03-20] MEDS: Calcium Acetate 667 MG CAP PO SCH (08:00)
[2021-03-20] MEDS ORDERED: Heparin 5,000 UNITS/ML VIAL SC SCH (09:00)
[2021-03-20] MEDS: Folic Acid/Vit B Comp W-C PO SCH (13:30)
[2021-03-20 13:41] LABS: PTT 148.5 sec (22.9-36.1)
[2021-03-20] MEDS ORDERED: Warfarin Sodium 7.5 MG TAB PO SCH (17:00)
[2021-03-20] MEDS: Atorvastatin Calcium 40 MG TAB PO SCH (20:54)
[2021-03-21 05:09] LABS: Hemoglobin 10.3 g/dL (14.0-18.0); Mean Corpuscular HGB CONC 34.6 g/dL (32.0-36.0); Mean Corpuscular Hemoglobin 32.8 pg (27.0-31.0); Mean Corpuscular Volume 94.8 fL (78.0-98.0); Mean Platelet Volume 8.4 fL (7.4-10.4); Platelet Count 233 thou/uL (130-400); RBC Distribution Width 13.7 % (11.5-14.5); Red Blood Cell (RBC) Count 3.15 mill/uL (4.70-6.10); White Blood Cell (WBC) Count 7.5 thou/uL (4.8-10.8)
[2021-03-21 05:15] LABS: INR-International Normal Ratio 2.1; Prothrombin Time 23.6 sec (12.0-14.7)
[2021-03-21 05:24] LABS: Anion Gap 18 mmol/L (10-20); BUN (Urea Nitrogen) 35 mg/dL (8.4-25.7); Calc. Creatinine Clearance 14 mL/min (70-130); Calcium 8.8 mg/dL (7.8-10.44); Carbon Dioxide 26 mmol/L (22-29); Chloride 98 mmol/L (98-107); Glucose 105 mg/dL (70-105); Potassium 4.9 mmol/L (3.5-5.1); Sodium 137 mmol/L (136-145)
[2021-03-21 05:28] LABS: Band 1 % (5-11); Lymphocytes 14 % (21-51); MDiff Complete? YES; Monocytes 7 % (0-10); Neutrophil 77 % (42-75)
[2021-03-21] MEDS: Calcium Acetate 667 MG CAP PO SCH (09:03)
[2021-03-21] MEDS: Aspirin 325 MG TAB PO SCH (09:04)
[2021-03-21] MEDS: Folic Acid/Vit B Comp W-C PO SCH (09:04)
[2021-03-21] MEDS: Heparin 25,000 units/D5W 500 ML IVPB SCH (18:14)
[2021-03-21] MEDS ORDERED: hydrALAZINE 20 MG/ML VIAL SLOW IVP PRN (18:35)
[2021-03-21] MEDS: Atorvastatin Calcium 40 MG TAB PO SCH (20:39)
[2021-03-21] MEDS: Metoprolol Tartrate 100 MG TAB PO SCH (20:39)
[2021-03-22] MEDS: Folic Acid/Vit B Comp W-C PO SCH (05:30)
[2021-03-22] MEDS: Metoprolol Tartrate 100 MG TAB PO SCH ×2 (05:30→20:43)
[2021-03-22] MEDS: Aspirin 325 MG TAB PO SCH (05:30)
[2021-03-22] MEDS: Calcium Acetate 667 MG CAP PO SCH (05:30)
[2021-03-22] MEDS: NIFEdipine XL 60 MG TAB PO SCH (06:32)
[2021-03-22 07:21] LABS: Hemoglobin 8.8 g/dL (14.0-18.0); Platelet Count 252 thou/uL (130-400)
[2021-03-22 07:32] LABS: INR-International Normal Ratio 1.5
[2021-03-22 07:33] LABS: PTT 66.7 sec (22.9-36.1)
[2021-03-22] MEDS ORDERED: Iopamidol 370 76% 100 ML VIAL ONE (09:03)
[2021-03-22] MEDS ORDERED: Lidocaine 1% (PF) 30 ML VIAL ONE (11:15)
[2021-03-22] MEDS ORDERED: Midazolam HCl 2 mg/2 ml Vial ONE (12:19)
[2021-03-22] MEDS ORDERED: Acetaminophen/Codeine 30-300mg Tablet PO PRN ×2 (13:11)
[2021-03-22] MEDS ORDERED: Nitroglycerin 0.4 MG TAB (25 Tab Bottle) SL PRN (13:11)
[2021-03-22] MEDS ORDERED: Sodium Chloride 0.9% 200 ML IV PRN (13:11)
[2021-03-22 13:35] LABS: Hemoglobin 9.9 g/dL (14.0-18.0); Platelet Count 216 thou/uL (130-400)
[2021-03-22] MEDS: Communication Order-Pharmacy FS SCH (19:00)
[2021-03-22] MEDS: Heparin 25,000 units/D5W 500 ML IVPB SCH (20:06)
[2021-03-22] MEDS: Atorvastatin Calcium 40 MG TAB PO SCH (20:43)
[2021-03-23] MEDS ORDERED: Acetaminophen/Codeine 30-300mg Tablet PO PRN ×2 (08:10)
[2021-03-23] MEDS ORDERED: Acetaminophen 325 MG TAB PO PRN (08:11)
[2021-03-23] MEDS: Calcium Acetate 667 MG CAP PO SCH (09:22)
[2021-03-23] MEDS: Folic Acid/Vit B Comp W-C PO SCH (09:22)
[2021-03-23] MEDS: NIFEdipine XL 60 MG TAB PO SCH (09:23)
[2021-03-23] MEDS: Metoprolol Tartrate 100 MG TAB PO SCH ×2 (09:23→21:38)
[2021-03-23] MEDS: Heparin 10,000 UNITS/ 10 ML VIAL SLOW IVP SCH ×2 (10:11→21:35)
[2021-03-23] MEDS: Atorvastatin Calcium 40 MG TAB PO SCH (21:38)
[2021-03-23] MEDS: Communication Order-Pharmacy FS SCH (21:38)
[2021-03-24] MEDS: Heparin 25,000 units/D5W 500 ML IVPB SCH (01:27)
[2021-03-24 04:36] LABS: PTT Greater than 250.0 sec (22.9-36.1)
[2021-03-24] MEDS: Metoprolol Tartrate 100 MG TAB PO SCH (05:26)
[2021-03-24 05:30] LABS: PTT 116.7 sec (22.9-36.1)
[2021-03-24 06:06] LABS: Hemoglobin 8.6 g/dL (14.0-18.0); Platelet Count 195 thou/uL (130-400)
[2021-03-24] MEDS ORDERED: Albumin 5% 500 ML ONE (06:34)
[2021-03-24] MEDS ORDERED: Heparin 10,000 UNITS/1 ML VIAL 30,000 UNITS in Sodium Chloride 0.9% 1,000 ML FS SCH (06:45)
[2021-03-24] MEDS ORDERED: Fentanyl 250 MCG/5 ML VIAL ONE (06:47)
[2021-03-24] MEDS ORDERED: Dexmedetomidine 200 MCG/2 ML VIAL ONE (06:48)
[2021-03-24] MEDS ORDERED: Midazolam HCl 5 mg/5 ml Vial ONE (06:48)
[2021-03-24] MEDS ORDERED: Sodium Chloride 0.9% 30 ML ONE (06:55)
[2021-03-24] MEDS ORDERED: Midazolam HCl 2 mg/2 ml Vial ONE (07:07)
[2021-03-24] MEDS ORDERED: Dexamethasone 20 MG/5 ML VIAL ONE (07:37)
[2021-03-24] MEDS ORDERED: Norepinephrine 4 MG/4 ML VIAL ONE (07:37)
[2021-03-24] MEDS ORDERED: Lidocaine 1% PF 5 ML VIAL ONE (07:37)
[2021-03-24] MEDS ORDERED: Vecuronium 10 MG VIAL ONE (07:37)
[2021-03-24] MEDS ORDERED: Rocuronium Bromide 10 MG/ML (10ML VIAL) ONE (07:37)
[2021-03-24] MEDS ORDERED: Heparin 30,000 units/30 ml VIAL ONE (07:37)
[2021-03-24] MEDS ORDERED: PROPOFOL 200 MG/20 ML VIAL ONE (07:37)
[2021-03-24] MEDS ORDERED: Aminocaproic Acid 5 GM/20 ML VIAL ONE (07:37)
[2021-03-24] MEDS ORDERED: Sodium Bicarb 50 MEQ/50 ML Abboject 8.4% SYRINGE ONE (07:37)
[2021-03-24] MEDS ORDERED: Lidocaine 2% PF 100 mg/5 ml Syringe ONE (07:37)
[2021-03-24] MEDS ORDERED: Heparin 5,000 UNITS/ML VIAL ONE (07:37)
[2021-03-24] MEDS ORDERED: Papaverine 60 MG/2 ML VIAL ONE (07:37)
[2021-03-24] MEDS ORDERED: Mannitol 12.5 GM/50 ML ONE (07:37)
[2021-03-24] MEDS ORDERED: Calcium Chloride 1 GM/10 ML Abboject SYRINGE ONE (07:37)
[2021-03-24] MEDS ORDERED: Thrombin 5000 UNITS/5 ML VIAL ONE (07:37)
[2021-03-24] MEDS ORDERED: Magnesium Sulfate 1 GM/2 ML VIAL ONE (07:37)
[2021-03-24] MEDS ORDERED: Protamine Sulfate 250 MG/25 ML VIAL ONE (07:37)
[2021-03-24] MEDS ORDERED: Nitroglycerin 50 MG/250 ML BOT ONE (07:37)
[2021-03-24] MEDS ORDERED: Cardioplegic Soln 1,000 ML BAG ONE (07:37)
[2021-03-24] MEDS ORDERED: Potassium Chloride 60 MEQ/30 ML VIAL ONE (07:37)
[2021-03-24] MEDS ORDERED: Ondansetron PF 4 MG/2 ML Vial ONE (07:37)
[2021-03-24] MEDS ORDERED: NIFEdipine XL 30 MG TAB PO SCH (09:00)
[2021-03-24] MEDS ORDERED: PHENYLEPHRINE-NS 100 MCG/ML 10 ML SYRINGE ONE (10:01)
[2021-03-24] MEDS ORDERED: Insulin Regular 300 UNITS/3 ML VIAL ONE (10:28)
[2021-03-24] MEDS ORDERED: Nitroglycerin 50 MG/250 ML BOT 250 ML IVPB PRN (13:22)
[2021-03-24] MEDS ORDERED: Morphine 2 MG/ML VIAL SLOW IVP PRN (13:22)
[2021-03-24] MEDS ORDERED: Post-Op Insulin Drip Protocol IVPB ONE (13:22)
[2021-03-24] MEDS ORDERED: Norepinephrine 8 MG/0.9% NS 250 ML IVPB PRN (13:22)
[2021-03-24] MEDS ORDERED: Guaifenesin DM 100-10/5 ML UDCUP PO PRN (13:22)
[2021-03-24] MEDS ORDERED: Bisacodyl 5 MG TAB PO PRN (13:22)
[2021-03-24] MEDS ORDERED: Promethazine HCl 25 MG/ML VIAL IM PRN (13:22)
[2021-03-24] MEDS ORDERED: Ondansetron PF 4 MG/2 ML Vial IVP PRN (13:22)
[2021-03-24] MEDS ORDERED: Acetaminophen 325 MG TAB PO PRN (13:22)
[2021-03-24] MEDS ORDERED: Fentanyl 100 MCG/2 ML VIAL SLOW IVP PRN (13:22)
[2021-03-24] MEDS ORDERED: niCARdipine 25 MG in Sodium Chloride 0.9% 250 ML 250 ML IVPB PRN (13:22)
[2021-03-24] MEDS ORDERED: hydrALAZINE 20 MG/ML VIAL SLOW IVP PRN (13:22)
[2021-03-24] MEDS ORDERED: DOPamine 400 MG/D5W 250 ML 250 ML IVPB PRN (13:22)
[2021-03-24] MEDS ORDERED: Sodium Chloride 0.9% 1,000 ML IV SCH (13:22)
[2021-03-24] MEDS ORDERED: HYDROcodone/Acetaminophen 5/325 mg Tablet PO PRN (13:22)
[2021-03-24] MEDS ORDERED: Hetastarch 6% 500 ML 500 ML IVPB PRN (13:22)
[2021-03-24] MEDS ORDERED: Bisacodyl 10 MG SUPP PR PRN (13:22)
[2021-03-24] MEDS ORDERED: Mag-Al 1200 mg/1200 mg/30 ML UDCUP PO PRN (13:22)
[2021-03-24 13:57] LABS: #Eosinphils 0.2 thou/uL (0.0-0.7); #Monocytes 0.9 thou/uL (0.11-0.59); #Neutrophils 15.9 thou/uL (1.40-6.50); %Basophils 0.1 % (0.0-1.0); %Eosinophils 1.2 % (0.0-10.0); %Lymphocytes 5.5 % (21.0-51.0); %Monocytes 5.1 % (0.0-10.0); Hemoglobin 9.3 g/dL (14.0-18.0); Mean Corpuscular HGB CONC 33.3 g/dL (32.0-36.0); Mean Corpuscular Hemoglobin 31.8 pg (27.0-31.0); Mean Corpuscular Volume 95.4 fL (78.0-98.0); Mean Platelet Volume 8.4 fL (7.4-10.4); Platelet Count 163 thou/uL (130-400); RBC Distribution Width 13.7 % (11.5-14.5); Red Blood Cell (RBC) Count 2.94 mill/uL (4.70-6.10); White Blood Cell (WBC) Count 18.1 thou/uL (4.8-10.8)
[2021-03-24] MEDS ORDERED: Lantus 1000 UNITS/10 ML VIAL SC PRN (14:00)
[2021-03-24] MEDS ORDERED: HUMULIN R 100 UNITS in Sodium Chloride 0.9% 100 ML IVPB SCH (14:00)
[2021-03-24] MEDS ORDERED: Dextrose 50% Abboject 50 ML SYRINGE SLOW IVP PRN (14:00)
[2021-03-24] MEDS ORDERED: Dextrose 5% in Water 1,000 ML IV PRN (14:00)
[2021-03-24 14:05] LABS: INR-International Normal Ratio 1.4; PTT 34.4 sec (22.9-36.1); Prothrombin Time 16.7 sec (12.0-14.7)
[2021-03-24 14:17] LABS: Anion Gap 13 mmol/L (10-20); BUN (Urea Nitrogen) 27 mg/dL (8.4-25.7); Calc. Creatinine Clearance 20 mL/min (70-130); Calcium 7.8 mg/dL (7.8-10.44); Carbon Dioxide 23 mmol/L (22-29); Chloride 105 mmol/L (98-107); Glucose 91 mg/dL (70-105); Potassium 4.4 mmol/L (3.5-5.1); Sodium 137 mmol/L (136-145)
[2021-03-24] MEDS: Calcium Acetate 667 MG CAP PO SCH (14:19)
[2021-03-24] MEDS: Folic Acid/Vit B Comp W-C PO SCH (14:19)
[2021-03-24] MEDS: CEFAZOLIN 2 GM in Premix Bag 1 BAG IVPB SCH ×2 (14:22→21:17)
[2021-03-24 19:54] LABS: Hemoglobin 9.6 g/dL (14.0-18.0)
[2021-03-24] MEDS: Atorvastatin Calcium 40 MG TAB PO SCH (19:57)
[2021-03-24 20:09] LABS: Potassium 5.2 mmol/L (3.5-5.1)
[2021-03-24] MEDS ORDERED: Famotidine/PF 20 mg/2ml Vial SLOW IVP SCH (21:00)
[2021-03-24] MEDS: Fentanyl 100 MCG/2 ML VIAL SLOW IVP PRN (23:24)
[2021-03-25] MEDS: Insulin Regular 300 UNITS/3 ML VIAL SC PRN ×2 (00:35→04:31)
[2021-03-25 03:44] LABS: #Lymphocytes 0.3 thou/uL (1.20-3.40); #Monocytes 0.5 thou/uL (0.11-0.59); #Neutrophils 9.8 thou/uL (1.40-6.50); %Basophils 0.1 % (0.0-1.0); %Eosinophils 0.1 % (0.0-10.0); %Monocytes 4.8 % (0.0-10.0); Hemoglobin 8.8 g/dL (14.0-18.0); Mean Corpuscular Hemoglobin 31.8 pg (27.0-31.0); Mean Corpuscular Volume 96.3 fL (78.0-98.0); Mean Platelet Volume 8.6 fL (7.4-10.4); Platelet Count 149 thou/uL (130-400); RBC Distribution Width 13.9 % (11.5-14.5); Red Blood Cell (RBC) Count 2.78 mill/uL (4.70-6.10); White Blood Cell (WBC) Count 10.6 thou/uL (4.8-10.8)
[2021-03-25 04:22] LABS: Chloride 104 mmol/L (98-107); Potassium 4.9 mmol/L (3.5-5.1); Sodium 138 mmol/L (136-145)
[2021-03-25 04:23] LABS: Calcium 8.4 mg/dL (7.8-10.44); Glucose 141 mg/dL (70-105)
[2021-03-25 04:25] LABS: Anion Gap 18 mmol/L (10-20); Carbon Dioxide 21 mmol/L (22-29)
[2021-03-25 04:27] LABS: BUN (Urea Nitrogen) 38 mg/dL (8.4-25.7); Calc. Creatinine Clearance 16 mL/min (70-130)
[2021-03-25] MEDS: CEFAZOLIN 2 GM in Premix Bag 1 BAG IVPB SCH (05:09)
[2021-03-25 05:54] VITALS: BMI 31.4
[2021-03-25] MEDS: Fentanyl 100 MCG/2 ML VIAL SLOW IVP PRN (07:49)
[2021-03-25] MEDS: Aspirin Chewable 81 MG TAB PO SCH (09:50)
[2021-03-25] MEDS: Calcium Acetate 667 MG CAP PO SCH (09:50)
[2021-03-25] MEDS: Folic Acid/Vit B Comp W-C PO SCH (09:50)
[2021-03-25] MEDS ORDERED: Nitroglycerin 0.4 MG TAB (25 Tab Bottle) SL PRN (11:54)
[2021-03-25] MEDS ORDERED: Famotidine/PF 20 mg/2ml Vial SLOW IVP SCH (21:00)
[2021-03-25] MEDS ORDERED: Sodium Chloride 0.9% 10 ML ONE (21:17)
[2021-03-25] MEDS: Atorvastatin Calcium 40 MG TAB PO SCH (21:27)
[2021-03-25] MEDS: Famotidine 20 MG TAB PO SCH (21:28)
[2021-03-25] MEDS: HYDROcodone/Acetaminophen 5/325 mg Tablet PO PRN (21:28)
[2021-03-26 04:29] LABS: #Lymphocytes 0.8 thou/uL (1.20-3.40); #Monocytes 1.3 thou/uL (0.11-0.59); #Neutrophils 7.9 thou/uL (1.40-6.50); %Basophils 0.4 % (0.0-1.0); %Eosinophils 0.4 % (0.0-10.0); %Lymphocytes 8.3 % (21.0-51.0); %Monocytes 12.5 % (0.0-10.0); %Neutrophils 78.4 % (42.0-75.0); Hemoglobin 9.3 g/dL (14.0-18.0); Mean Corpuscular HGB CONC 32.8 g/dL (32.0-36.0); Mean Corpuscular Hemoglobin 31.9 pg (27.0-31.0); Mean Corpuscular Volume 97.2 fL (78.0-98.0); Mean Platelet Volume 8.7 fL (7.4-10.4); Platelet Count 131 thou/uL (130-400); Red Blood Cell (RBC) Count 2.91 mill/uL (4.70-6.10)
[2021-03-26 04:50] LABS: Anion Gap 15 mmol/L (10-20); BUN (Urea Nitrogen) 33 mg/dL (8.4-25.7); Calc. Creatinine Clearance 18 mL/min (70-130); Calcium 8.4 mg/dL (7.8-10.44); Carbon Dioxide 25 mmol/L (22-29); Chloride 98 mmol/L (98-107); Glucose 137 mg/dL (70-105); Potassium 3.9 mmol/L (3.5-5.1); Sodium 134 mmol/L (136-145)
[2021-03-26] MEDS: Calcium Acetate 667 MG CAP PO SCH (09:20)
[2021-03-26] MEDS: Aspirin Chewable 81 MG TAB PO SCH (09:20)
[2021-03-26] MEDS: Folic Acid/Vit B Comp W-C PO SCH (09:21)
[2021-03-26] MEDS: Metoprolol Tartrate 25 MG TAB PO SCH ×2 (09:21→21:34)
[2021-03-26] MEDS: Polyethylene Glycol 3350 17 GM Packet PO SCH (09:22)
[2021-03-26] MEDS: HYDROcodone/Acetaminophen 5/325 mg Tablet PO PRN (14:50)
[2021-03-26] MEDS: Atorvastatin Calcium 40 MG TAB PO SCH (21:34)
[2021-03-26] MEDS: Famotidine 20 MG TAB PO SCH (21:34)
[2021-03-27] MEDS: HYDROcodone/Acetaminophen 5/325 mg Tablet PO PRN ×3 (04:07→13:06)
[2021-03-27] MEDS: Calcium Acetate 667 MG CAP PO SCH (08:02)
[2021-03-27] MEDS: Metoprolol Tartrate 25 MG TAB PO SCH (13:01)
[2021-03-27] MEDS: Aspirin Chewable 81 MG TAB PO SCH (13:01)
[2021-03-27] MEDS: Polyethylene Glycol 3350 17 GM Packet PO SCH (13:01)
[2021-03-27] MEDS: Folic Acid/Vit B Comp W-C PO SCH (13:01)
[2021-03-27 15:51] VITALS: BP 125/61; TEMP 97.8
== END 2021-03-27 18:30 | disposition home or self-care (01) | DRG 233 ==
LOC: ERS 00:46 → 2SW 03:03 → OBSVTOIN 12:59 → CCU 03-24 06:11 → 2NO 03-25 14:01
PROVIDERS: ADMIT Family Medicine; ATTEND Family Medicine
PROC: 5A1D70Z Performance of Urinary Filtration, Intermittent, Less than 6 Hours Per Day (ICD-10-PCS; 2021-03-20)
PROC: 4A023N7 Measurement of Cardiac Sampling and Pressure, Left Heart, Percutaneous Approach (ICD-10-PCS; 2021-03-22)
PROC: B2111ZZ Fluoroscopy of Multiple Coronary Arteries using Low Osmolar Contrast (ICD-10-PCS; 2021-03-22)
PROC: B2151ZZ Fluoroscopy of Left Heart using Low Osmolar Contrast (ICD-10-PCS; 2021-03-22)
PROC: 021309W Bypass Coronary Artery, Four or More Arteries from Aorta with Autologous Venous Tissue, Open Approach (ICD-10-PCS; principal; 2021-03-24)
PROC: 02100Z9 Bypass Coronary Artery, One Artery from Left Internal Mammary, Open Approach (ICD-10-PCS; 2021-03-24)
PROC: 06BQ0ZZ Excision of Left Saphenous Vein, Open Approach (ICD-10-PCS; 2021-03-24)
PROC: 5A1221Z Performance of Cardiac Output, Continuous (ICD-10-PCS; 2021-03-24)
PROC: 30233N1 Transfusion of Nonautologous Red Blood Cells into Peripheral Vein, Percutaneous Approach (ICD-10-PCS; 2021-03-24)
DX: I21.4 Non-ST elevation (NSTEMI) myocardial infarction (principal); N18.6 End stage renal disease; I13.11 Hypertensive heart and chronic kidney disease without heart failure, with stage 5 chronic kidney disease, or end stage renal disease; I25.10 Atherosclerotic heart disease of native coronary artery without angina pectoris; E11.22 Type 2 diabetes mellitus with diabetic chronic kidney disease; F31.9 Bipolar disorder, unspecified; D63.1 Anemia in chronic kidney disease; R94.5 Abnormal results of liver function studies; E87.5 Hyperkalemia; E78.00 Pure hypercholesterolemia, unspecified; E78.2 Mixed hyperlipidemia; D17.5 Benign lipomatous neoplasm of intra-abdominal organs; E87.70 Fluid overload, unspecified; Z99.2 Dependence on renal dialysis; Z88.8 Allergy status to other drugs, medicaments and biological substances; Z79.899 Other long term (current) drug therapy; Z79.01 Long term (current) use of anticoagulants; Z79.82 Long term (current) use of aspirin; Z87.891 Personal history of nicotine dependence; Z82.49 Family history of ischemic heart disease and other diseases of the circulatory system; Z95.810 Presence of automatic (implantable) cardiac defibrillator; Z90.49 Acquired absence of other specified parts of digestive tract; Z98.52 Vasectomy status; I69.311 Memory deficit following cerebral infarction
CPT/HCPCS: 36415; 36416; 36430; 71045; 71250; 80048; 80053; 82550; 82553; 82947; 83690; 83880; 84484; 85007; 85014; 85018; 85025; 85027; 85049; 85610; 85730; 86850; 86900; 86901; 90935; 93005; 93010; 93306; 93458; 93798; 94760; 99152; G0257; G0378; J0360; J0690; J1100; J1642; J1644; J1815; J2001; J2150; J2250; J2405; J2440; J2704; J2720; J3010; J3370; J3475; J3480; P9016; P9045; Q0162; Q9967; S0017; S0028

== ENCOUNTER 2021-05-22 10:08 | Emergency (ER) | payer MEDICARE, MEDICAID | END 2021-05-22 11:47 | disposition home or self-care (01) | LOC: ERS 10:08 | DX: R55 Syncope and collapse (principal); E11.9 Type 2 diabetes mellitus without complications; I10 Essential (primary) hypertension; E11.22 Type 2 diabetes mellitus with diabetic chronic kidney disease; N18.6 End stage renal disease; Z99.2 Dependence on renal dialysis; Z79.01 Long term (current) use of anticoagulants; Z79.82 Long term (current) use of aspirin; Z79.899 Other long term (current) drug therapy | CPT/HCPCS: 99284 ==

== ENCOUNTER 2021-06-23 14:08 | Inpatient (IN) | payer MEDICARE, MEDICAID ==
[~2021-06-23 14:08] MED LIST changes: -Heparin 10,000 UNITS/ 10 ML VIAL ONE; +Iopamidol-370 76% 500 ML 1 ML ONE; -Lidocaine 1% PF 5 ML VIAL ONE; -PHENYLEPHRINE-NS 100 MCG/ML 10 ML SYRINGE ONE; -PROPOFOL 200 MG/20 ML VIAL ONE; -ePHEDrine 50 MG/ML VIAL ONE
[2021-06-23 15:09] LABS: ALT (SGPT) 21 U/L (8-55); AST (SGOT) 33 U/L (5-34); Albumin 3.4 g/dL (3.5-5.0); Alkaline Phosphatase 93 U/L (40-110); Anion Gap 15 mmol/L (10-20); BUN (Urea Nitrogen) 22 mg/dL (8.4-25.7); Bilirubin, Total 0.8 mg/dL (0.2-1.2); Calc. Creatinine Clearance 0 mL/min (70-130); Calcium 9.4 mg/dL (7.8-10.44); Carbon Dioxide 31 mmol/L (22-29); Chloride 98 mmol/L (98-107); Globulin 3.1 g/dL (2.4-3.5); Glucose 96 mg/dL (70-105); Potassium 3.6 mmol/L (3.5-5.1); Protein, Total 6.5 g/dL (6.0-8.3); Sodium 140 mmol/L (136-145)
[2021-06-23 15:16] LABS: #Lymphocytes 0.5 thou/uL (1.20-3.40); #Monocytes 0.5 thou/uL (0.11-0.59); #Neutrophils 6.6 thou/uL (1.40-6.50); %Basophils 0.1 % (0.0-1.0); %Eosinophils 0.6 % (0.0-10.0); %Monocytes 6.8 % (0.0-10.0); %Neutrophils 85.5 % (42.0-75.0); Hemoglobin 9.4 g/dL (14.0-18.0); Mean Corpuscular Hemoglobin 28.6 pg (27.0-31.0); Mean Corpuscular Volume 92.2 fL (78.0-98.0); Mean Platelet Volume 7.7 fL (7.4-10.4); Platelet Count 290 thou/uL (130-400); RBC Distribution Width 16.1 % (11.5-14.5); Red Blood Cell (RBC) Count 3.29 mill/uL (4.70-6.10); White Blood Cell (WBC) Count 7.7 thou/uL (4.8-10.8)
[2021-06-23 20:16] LABS: SARS-CoV-2 PCR by NAA Not Detected (NotDetected)
[2021-06-23] MEDS ORDERED: cefTRIAXone\\ROCEPHIN 2 GM VIAL ONE (20:45)
[2021-06-23] MEDS ORDERED: Vancomycin 1 GM/200 ML BAG ONE (20:45)
[2021-06-23 20:54] LABS: CKMB 3.5 ng/mL (0-6.6)
[2021-06-23] MEDS ORDERED: hydrALAZINE 20 MG/ML VIAL SLOW IVP PRN (22:11)
[2021-06-23] MEDS ORDERED: Furosemide 40 MG/4 ML VIAL SLOW IVP SCH (22:15)
[2021-06-23] MEDS ORDERED: Dextrose 5% in Water 1,000 ML IV PRN (22:36)
[2021-06-23] MEDS ORDERED: Dextrose 50% Abboject 50 ML SYRINGE SLOW IVP PRN (22:36)
[2021-06-23 23:06] VITALS: BMI 28.4
[2021-06-24 03:43] LABS: Troponin I 0.078 ng/mL (< 0.028)
[2021-06-24 05:05] LABS: #Eosinphils 0.2 thou/uL (0.0-0.7); #Lymphocytes 0.6 thou/uL (1.20-3.40); #Monocytes 0.6 thou/uL (0.11-0.59); #Neutrophils 4.5 thou/uL (1.40-6.50); %Basophils 0.6 % (0.0-1.0); %Lymphocytes 10.3 % (21.0-51.0); %Neutrophils 76.2 % (42.0-75.0); Hemoglobin 9.5 g/dL (14.0-18.0); Mean Corpuscular Hemoglobin 30.1 pg (27.0-31.0); Mean Platelet Volume 9.2 fL (7.4-10.4); Platelet Count 185 thou/uL (130-400); RBC Distribution Width 15.9 % (11.5-14.5); Red Blood Cell (RBC) Count 3.14 mill/uL (4.70-6.10); White Blood Cell (WBC) Count 5.9 thou/uL (4.8-10.8)
[2021-06-24 05:56] LABS: Anion Gap 17 mmol/L (10-20); BUN (Urea Nitrogen) 21 mg/dL (8.4-25.7); Calc. Creatinine Clearance 20 mL/min (70-130); Calcium 8.8 mg/dL (7.8-10.44); Carbon Dioxide 24 mmol/L (22-29); Chloride 101 mmol/L (98-107); Glucose 97 mg/dL (70-105); Potassium 4.3 mmol/L (3.5-5.1); Sodium 138 mmol/L (136-145)
[2021-06-24] MEDS ORDERED: Amlodipine 5 MG TAB PO SCH (09:00)
[2021-06-24] MEDS ORDERED: Enoxaparin Sodium 30 MG/0.3 ML SYRINGE SC SCH (09:00)
[2021-06-24] MEDS: Aspirin Chewable 81 MG TAB PO SCH (09:17)
[2021-06-24] MEDS: Folic Acid/Vit B Comp W-C PO SCH (09:17)
[2021-06-24] MEDS: Metoprolol Tartrate 25 MG TAB PO SCH ×2 (09:17→22:53)
[2021-06-24] MEDS: hydrALAZINE 25 MG TAB PO SCH ×2 (09:17→22:53)
[2021-06-24] MEDS: Heparin 5,000 UNITS/ML VIAL SC SCH ×3 (09:18→22:51)
[2021-06-24] MEDS: Calcium Acetate 667 MG CAP PO SCH (09:21)
[2021-06-24] MEDS: Atorvastatin Calcium 40 MG TAB PO SCH (22:53)
[2021-06-25] MEDS ORDERED: Melatonin 3 MG TAB PO SCH ×2 (00:30→21:00)
[2021-06-25] MEDS: Benzonatate 100 MG CAP PO SCH ×6 (00:47→20:57)
[2021-06-25] MEDS: hydrALAZINE 25 MG TAB PO SCH ×2 (10:25→20:58)
[2021-06-25] MEDS: Amlodipine 10 MG TAB PO SCH (10:28)
[2021-06-25] MEDS: Aspirin Chewable 81 MG TAB PO SCH (10:28)
[2021-06-25] MEDS: Folic Acid/Vit B Comp W-C PO SCH (10:28)
[2021-06-25] MEDS: Metoprolol Tartrate 25 MG TAB PO SCH ×2 (10:28→20:57)
[2021-06-25] MEDS: Heparin 5,000 UNITS/ML VIAL SC SCH ×3 (10:29→20:58)
[2021-06-25] MEDS: Calcium Acetate 667 MG CAP PO SCH (12:05)
[2021-06-25 14:33] LABS: #Basophils 0.1 thou/uL (0.0-0.2); #Eosinphils 0.4 thou/uL (0.0-0.7); #Lymphocytes 0.6 thou/uL (1.20-3.40); #Monocytes 0.5 thou/uL (0.11-0.59); #Neutrophils 3.8 thou/uL (1.40-6.50); %Eosinophils 7.2 % (0.0-10.0); %Lymphocytes 11.1 % (21.0-51.0); %Monocytes 8.6 % (0.0-10.0); %Neutrophils 72.1 % (42.0-75.0); Hemoglobin 9.1 g/dL (14.0-18.0); Mean Corpuscular HGB CONC 31.2 g/dL (32.0-36.0); Mean Corpuscular Hemoglobin 29.4 pg (27.0-31.0); Mean Corpuscular Volume 94.3 fL (78.0-98.0); Mean Platelet Volume 7.4 fL (7.4-10.4); Platelet Count 324 thou/uL (130-400); RBC Distribution Width 15.8 % (11.5-14.5); Red Blood Cell (RBC) Count 3.09 mill/uL (4.70-6.10); White Blood Cell (WBC) Count 5.3 thou/uL (4.8-10.8)
[2021-06-25 15:01] LABS: Anion Gap 13 mmol/L (10-20); BUN (Urea Nitrogen) 26 mg/dL (8.4-25.7); Calc. Creatinine Clearance 16 mL/min (70-130); Calcium 9.1 mg/dL (7.8-10.44); Carbon Dioxide 31 mmol/L (22-29); Chloride 100 mmol/L (98-107); Glucose 154 mg/dL (70-105); Potassium 3.8 mmol/L (3.5-5.1); Sodium 140 mmol/L (136-145)
[2021-06-25] MEDS: Atorvastatin Calcium 40 MG TAB PO SCH (20:59)
[2021-06-26] MEDS: Benzonatate 100 MG CAP PO SCH ×6 (00:29→20:30)
[2021-06-26 04:59] LABS: #Eosinphils 0.6 thou/uL (0.0-0.7); #Monocytes 0.5 thou/uL (0.11-0.59); #Neutrophils 3.8 thou/uL (1.40-6.50); %Basophils 0.8 % (0.0-1.0); %Eosinophils 9.4 % (0.0-10.0); %Lymphocytes 16.7 % (21.0-51.0); %Monocytes 8.5 % (0.0-10.0); %Neutrophils 64.5 % (42.0-75.0); Hemoglobin 8.7 g/dL (14.0-18.0); Mean Corpuscular Hemoglobin 29.9 pg (27.0-31.0); Mean Corpuscular Volume 93.4 fL (78.0-98.0); Mean Platelet Volume 7.4 fL (7.4-10.4); Platelet Count 325 thou/uL (130-400); RBC Distribution Width 15.5 % (11.5-14.5); Red Blood Cell (RBC) Count 2.92 mill/uL (4.70-6.10); White Blood Cell (WBC) Count 5.9 thou/uL (4.8-10.8)
[2021-06-26 05:17] LABS: Anion Gap 14 mmol/L (10-20); BUN (Urea Nitrogen) 41 mg/dL (8.4-25.7); Calc. Creatinine Clearance 14 mL/min (70-130); Carbon Dioxide 28 mmol/L (22-29); Chloride 100 mmol/L (98-107); Glucose 109 mg/dL (70-105); Potassium 4.1 mmol/L (3.5-5.1); Sodium 138 mmol/L (136-145)
[2021-06-26] MEDS: Calcium Acetate 667 MG CAP PO SCH (12:25)
[2021-06-26] MEDS: Amlodipine 10 MG TAB PO SCH (12:26)
[2021-06-26] MEDS: Metoprolol Tartrate 25 MG TAB PO SCH ×2 (12:27→20:28)
[2021-06-26] MEDS: Heparin 5,000 UNITS/ML VIAL SC SCH ×3 (12:27→20:29)
[2021-06-26] MEDS: Folic Acid/Vit B Comp W-C PO SCH (12:27)
[2021-06-26] MEDS: Aspirin Chewable 81 MG TAB PO SCH (12:27)
[2021-06-26] MEDS: hydrALAZINE 25 MG TAB PO SCH ×3 (12:30→20:29)
[2021-06-26] MEDS: Atorvastatin Calcium 40 MG TAB PO SCH (20:29)
[2021-06-26] MEDS: Melatonin 3 MG TAB PO SCH (20:29)
[2021-06-27] MEDS: Benzonatate 100 MG CAP PO SCH ×6 (01:27→20:16)
[2021-06-27 06:14] LABS: #Eosinphils 0.5 thou/uL (0.0-0.7); #Lymphocytes 0.8 thou/uL (1.20-3.40); #Monocytes 0.4 thou/uL (0.11-0.59); #Neutrophils 3.5 thou/uL (1.40-6.50); %Basophils 0.7 % (0.0-1.0); %Lymphocytes 15.9 % (21.0-51.0); %Monocytes 7.3 % (0.0-10.0); %Neutrophils 67.2 % (42.0-75.0); Hemoglobin 8.3 g/dL (14.0-18.0); Mean Corpuscular HGB CONC 30.9 g/dL (32.0-36.0); Mean Corpuscular Hemoglobin 28.7 pg (27.0-31.0); Mean Corpuscular Volume 92.9 fL (78.0-98.0); Mean Platelet Volume 7.3 fL (7.4-10.4); Platelet Count 337 thou/uL (130-400); RBC Distribution Width 15.6 % (11.5-14.5); Red Blood Cell (RBC) Count 2.89 mill/uL (4.70-6.10); White Blood Cell (WBC) Count 5.2 thou/uL (4.8-10.8)
[2021-06-27 06:30] LABS: Anion Gap 18 mmol/L (10-20); BUN (Urea Nitrogen) 36 mg/dL (8.4-25.7); Calc. Creatinine Clearance 17 mL/min (70-130); Calcium 8.9 mg/dL (7.8-10.44); Carbon Dioxide 26 mmol/L (22-29); Chloride 100 mmol/L (98-107); Glucose 88 mg/dL (70-105); Potassium 4.5 mmol/L (3.5-5.1); Sodium 139 mmol/L (136-145)
[2021-06-27] MEDS: Heparin 5,000 UNITS/ML VIAL SC SCH ×3 (08:36→20:15)
[2021-06-27] MEDS: Calcium Acetate 667 MG CAP PO SCH (08:37)
[2021-06-27] MEDS: Aspirin Chewable 81 MG TAB PO SCH (08:39)
[2021-06-27] MEDS: Amlodipine 10 MG TAB PO SCH (08:39)
[2021-06-27] MEDS: Folic Acid/Vit B Comp W-C PO SCH (08:40)
[2021-06-27] MEDS: hydrALAZINE 25 MG TAB PO SCH ×3 (08:40→20:17)
[2021-06-27] MEDS: Metoprolol Tartrate 25 MG TAB PO SCH ×2 (08:40→20:17)
[2021-06-27 15:56] LABS: Pleural Fluid, Protein 2.7 g/dL
[2021-06-27 16:09] LABS: RBC Count-Automated (BF) 120 /cu.mm; WBC/Nucleated-Auto (BF) 276 uL
[2021-06-27 16:30] LABS: BF Color Yellow; Body Fluid Source Pleural Fluid; Clarity Hazy (Clear); Tube # EDTA
[2021-06-27 16:34] LABS: BF Segmented Neutrophils 9 %; Cell Count Non Hematic 77 %; Eosinophils 1 %; Lymphocytes 13 %
[2021-06-27] MEDS: Melatonin 3 MG TAB PO SCH (18:09)
[2021-06-27] MEDS: Atorvastatin Calcium 40 MG TAB PO SCH (20:15)
[2021-06-28] MEDS: Benzonatate 100 MG CAP PO SCH ×3 (03:25→13:54)
[2021-06-28 05:54] LABS: #Eosinphils 0.3 thou/uL (0.0-0.7); #Lymphocytes 0.9 thou/uL (1.20-3.40); #Monocytes 0.4 thou/uL (0.11-0.59); #Neutrophils 5.6 thou/uL (1.40-6.50); %Basophils 0.3 % (0.0-1.0); %Eosinophils 3.8 % (0.0-10.0); %Lymphocytes 12.3 % (21.0-51.0); %Monocytes 5.9 % (0.0-10.0); %Neutrophils 77.8 % (42.0-75.0); Hemoglobin 8.6 g/dL (14.0-18.0); Mean Corpuscular HGB CONC 31.9 g/dL (32.0-36.0); Mean Corpuscular Volume 91.1 fL (78.0-98.0); Mean Platelet Volume 7.2 fL (7.4-10.4); Platelet Count 343 thou/uL (130-400); RBC Distribution Width 15.7 % (11.5-14.5); Red Blood Cell (RBC) Count 2.94 mill/uL (4.70-6.10); White Blood Cell (WBC) Count 7.1 thou/uL (4.8-10.8)
[2021-06-28 06:42] LABS: Chloride 97 mmol/L (98-107); Potassium 4.5 mmol/L (3.5-5.1); Sodium 136 mmol/L (136-145)
[2021-06-28 06:43] LABS: Glucose 95 mg/dL (70-105)
[2021-06-28 06:44] LABS: Anion Gap 16 mmol/L (10-20); Carbon Dioxide 28 mmol/L (22-29)
[2021-06-28 06:46] LABS: Calc. Creatinine Clearance 12 mL/min (70-130)
[2021-06-28 06:47] LABS: BUN (Urea Nitrogen) 49 mg/dL (8.4-25.7)
[2021-06-28] MEDS ORDERED: hydrALAZINE 25 MG TAB PO SCH ×2 (10:00→15:00)
[2021-06-28 13:16] VITALS: TEMP 97.5
[2021-06-28] MEDS: Aspirin Chewable 81 MG TAB PO SCH (13:53)
[2021-06-28] MEDS: Folic Acid/Vit B Comp W-C PO SCH (13:53)
[2021-06-28] MEDS: Heparin 5,000 UNITS/ML VIAL SC SCH (13:54)
[2021-06-28] MEDS: Amlodipine 10 MG TAB PO SCH (13:55)
[2021-06-28 13:56] VITALS: BP 95/52
[2021-06-28] MEDS: Metoprolol Tartrate 25 MG TAB PO SCH (13:56)
[2021-06-28] MEDS: Calcium Acetate 667 MG CAP PO SCH (13:56)
== END 2021-06-28 14:25 | disposition home or self-care (01) | DRG 640 ==
LOC: ERS 14:08 → 2SE 21:11 → OBSVTOIN 06-24 11:27
PROVIDERS: ADMIT Family Medicine; ATTEND Family Medicine
PROC: 5A1D70Z Performance of Urinary Filtration, Intermittent, Less than 6 Hours Per Day (ICD-10-PCS; principal; 2021-06-23)
PROC: 0W9B3ZZ Drainage of Left Pleural Cavity, Percutaneous Approach (ICD-10-PCS; 2021-06-27)
DX: E87.70 Fluid overload, unspecified (principal); N18.6 End stage renal disease; J96.01 Acute respiratory failure with hypoxia; I13.0 Hypertensive heart and chronic kidney disease with heart failure and stage 1 through stage 4 chronic kidney disease, or unspecified chronic kidney disease; I50.32 Chronic diastolic (congestive) heart failure; J91.8 Pleural effusion in other conditions classified elsewhere; J98.11 Atelectasis; Z20.822 Contact with and (suspected) exposure to COVID-19; E11.22 Type 2 diabetes mellitus with diabetic chronic kidney disease; I25.10 Atherosclerotic heart disease of native coronary artery without angina pectoris; I16.0 Hypertensive urgency; D63.1 Anemia in chronic kidney disease; G47.00 Insomnia, unspecified; R05 Cough; Z53.29 Procedure and treatment not carried out because of patient's decision for other reasons; Z99.2 Dependence on renal dialysis; Z86.73 Personal history of transient ischemic attack (TIA), and cerebral infarction without residual deficits; Z88.8 Allergy status to other drugs, medicaments and biological substances; Z79.899 Other long term (current) drug therapy; Z95.1 Presence of aortocoronary bypass graft; Z95.810 Presence of automatic (implantable) cardiac defibrillator; Z82.49 Family history of ischemic heart disease and other diseases of the circulatory system
CPT/HCPCS: 36415; 36416; 71045; 71275; 80048; 80053; 82553; 82945; 83615; 83880; 84145; 84155; 84157; 84484; 85025; 85060; 87070; 87205; 89051; 90935; 96365; 96367; 96375; G0257; G0378; J0696; J1644; J1940; J3370; Q9967; U0003; U0005

== ENCOUNTER 2021-07-11 12:55 | Inpatient (IN) | payer MEDICARE, MEDICAID ==
[2021-07-11 13:43] LABS: #Eosinphils 0.2 thou/uL (0.0-0.7); #Lymphocytes 0.7 thou/uL (1.20-3.40); #Monocytes 0.4 thou/uL (0.11-0.59); #Neutrophils 3.5 thou/uL (1.40-6.50); %Basophils 0.8 % (0.0-1.0); %Monocytes 8.8 % (0.0-10.0); %Neutrophils 71.4 % (42.0-75.0); Mean Corpuscular HGB CONC 33.6 g/dL (32.0-36.0); Mean Corpuscular Hemoglobin 30.6 pg (27.0-31.0); Mean Platelet Volume 7.2 fL (7.4-10.4); Platelet Count 304 thou/uL (130-400); RBC Distribution Width 15.7 % (11.5-14.5); Red Blood Cell (RBC) Count 2.93 mill/uL (4.70-6.10); White Blood Cell (WBC) Count 4.9 thou/uL (4.8-10.8)
[2021-07-11 14:08] LABS: ALT (SGPT) 28 U/L (8-55); AST (SGOT) 31 U/L (5-34); Albumin 3.2 g/dL (3.5-5.0); Alkaline Phosphatase 103 U/L (40-110); Anion Gap 15 mmol/L (10-20); BUN (Urea Nitrogen) 35 mg/dL (8.4-25.7); Bilirubin, Total 0.5 mg/dL (0.2-1.2); Calc. Creatinine Clearance 0 mL/min (70-130); Calcium 9.6 mg/dL (7.8-10.44); Carbon Dioxide 29 mmol/L (22-29); Chloride 97 mmol/L (98-107); Glucose 123 mg/dL (70-105); Potassium 4.4 mmol/L (3.5-5.1); Protein, Total 6.2 g/dL (6.0-8.3); Sodium 137 mmol/L (136-145)
[2021-07-11] MEDS ORDERED: Acetaminophen 325 MG TAB PO PRN (17:21)
[2021-07-11] MEDS ORDERED: Calcium Carbonate 500 MG ChewTAB PO PRN (17:47)
[2021-07-11] MEDS ORDERED: HumaLOG 300 UNITS/3 ML VIAL SC PRN ×2 (18:04)
[2021-07-11] MEDS ORDERED: Dextrose 5% in Water 1,000 ML IV PRN (18:04)
[2021-07-11] MEDS ORDERED: Dextrose 50% Abboject 50 ML SYRINGE SLOW IVP PRN (18:04)
[2021-07-11 19:27] LABS: Troponin I 0.032 ng/mL (< 0.028)
[2021-07-11 20:51] LABS: SARS-CoV-2 NAA Rapid Test Not Detected (NotDetected)
[2021-07-11] MEDS ORDERED: hydrALAZINE 25 MG TAB ONE (21:03)
[2021-07-11] MEDS ORDERED: Metoprolol Tartrate 50 MG TAB ONE (21:03)
[2021-07-11] MEDS: hydrALAZINE 25 MG TAB PO SCH (21:07)
[2021-07-11] MEDS: Metoprolol Tartrate 50 MG TAB PO SCH (21:10)
[2021-07-11] MEDS: Heparin 5,000 UNITS/ML VIAL SC SCH (22:41)
[2021-07-11] MEDS: Atorvastatin Calcium 40 MG TAB PO SCH (22:42)
[2021-07-11] MEDS: Melatonin 3 MG TAB PO SCH (22:42)
[2021-07-11 23:41] VITALS: BMI 29.6
[2021-07-12 05:29] LABS: #Eosinphils 0.3 thou/uL (0.0-0.7); #Lymphocytes 0.8 thou/uL (1.20-3.40); #Monocytes 0.5 thou/uL (0.11-0.59); #Neutrophils 3.2 thou/uL (1.40-6.50); %Basophils 0.2 % (0.0-1.0); %Lymphocytes 16.3 % (21.0-51.0); %Monocytes 9.7 % (0.0-10.0); %Neutrophils 67.7 % (42.0-75.0); Hemoglobin 8.5 g/dL (14.0-18.0); Mean Corpuscular HGB CONC 32.7 g/dL (32.0-36.0); Mean Corpuscular Hemoglobin 29.9 pg (27.0-31.0); Mean Corpuscular Volume 91.3 fL (78.0-98.0); Mean Platelet Volume 7.1 fL (7.4-10.4); Platelet Count 279 thou/uL (130-400); RBC Distribution Width 15.7 % (11.5-14.5); Red Blood Cell (RBC) Count 2.83 mill/uL (4.70-6.10); White Blood Cell (WBC) Count 4.8 thou/uL (4.8-10.8)
[2021-07-12 05:55] LABS: Anion Gap 14 mmol/L (10-20); BUN (Urea Nitrogen) 45 mg/dL (8.4-25.7); Calc. Creatinine Clearance 13 mL/min (70-130); Calcium 9.3 mg/dL (7.8-10.44); Carbon Dioxide 29 mmol/L (22-29); Chloride 98 mmol/L (98-107); Glucose 105 mg/dL (70-105); Potassium 4.4 mmol/L (3.5-5.1); Sodium 137 mmol/L (136-145)
[2021-07-12] MEDS: Folic Acid/Vit B Comp W-C PO SCH (08:16)
[2021-07-12] MEDS: Amlodipine 10 MG TAB PO SCH (08:16)
[2021-07-12] MEDS: Metoprolol Tartrate 50 MG TAB PO SCH ×2 (08:16→20:12)
[2021-07-12] MEDS: Aspirin Chewable 81 MG TAB PO SCH (08:16)
[2021-07-12] MEDS: Calcium Acetate 667 MG CAP PO SCH (08:16)
[2021-07-12] MEDS: hydrALAZINE 25 MG TAB PO SCH ×3 (08:17→20:12)
[2021-07-12] MEDS: Heparin 5,000 UNITS/ML VIAL SC SCH ×2 (08:17→17:11)
[2021-07-12] MEDS ORDERED: Epoetin (ESRD) 20,000 UNITS/ML IVP SCH (09:30)
[2021-07-12] MEDS ORDERED: hydrALAZINE 20 MG/ML VIAL SLOW IVP PRN ×2 (12:27→14:20)
[2021-07-12] MEDS ORDERED: Non-Formulary Item 1 EACH (Hydralazine Hcl [Hydralazine Hcl] 50 MG Tablet) PO SCH (15:00)
[2021-07-12] MEDS ORDERED: hydrALAZINE 25 MG TAB PO SCH (15:00)
[2021-07-12] MEDS: EPOETIN ALFA-EPBX (ESRD) 10,000 UNIT/ML VIAL IVP SCH (17:20)
[2021-07-12] MEDS: Melatonin 3 MG TAB PO SCH (20:12)
[2021-07-12] MEDS: Atorvastatin Calcium 40 MG TAB PO SCH (20:12)
[2021-07-13 05:11] LABS: #Eosinphils 0.3 thou/uL (0.0-0.7); #Lymphocytes 0.8 thou/uL (1.20-3.40); #Monocytes 0.5 thou/uL (0.11-0.59); #Neutrophils 2.9 thou/uL (1.40-6.50); %Basophils 0.7 % (0.0-1.0); %Eosinophils 5.7 % (0.0-10.0); %Lymphocytes 17.6 % (21.0-51.0); %Monocytes 10.3 % (0.0-10.0); %Neutrophils 65.6 % (42.0-75.0); Hemoglobin 8.9 g/dL (14.0-18.0); Mean Corpuscular HGB CONC 32.2 g/dL (32.0-36.0); Mean Corpuscular Hemoglobin 29.4 pg (27.0-31.0); Mean Corpuscular Volume 91.2 fL (78.0-98.0); Mean Platelet Volume 7.3 fL (7.4-10.4); Platelet Count 280 thou/uL (130-400); RBC Distribution Width 15.7 % (11.5-14.5); Red Blood Cell (RBC) Count 3.03 mill/uL (4.70-6.10); White Blood Cell (WBC) Count 4.5 thou/uL (4.8-10.8)
[2021-07-13 05:32] LABS: Anion Gap 14 mmol/L (10-20); BUN (Urea Nitrogen) 29 mg/dL (8.4-25.7); Calc. Creatinine Clearance 17 mL/min (70-130); Calcium 8.7 mg/dL (7.8-10.44); Carbon Dioxide 29 mmol/L (22-29); Chloride 101 mmol/L (98-107); Glucose 73 mg/dL (70-105); Potassium 4.1 mmol/L (3.5-5.1); Sodium 140 mmol/L (136-145)
[2021-07-13] MEDS: Calcium Acetate 667 MG CAP PO SCH (08:17)
[2021-07-13] MEDS: Folic Acid/Vit B Comp W-C PO SCH (08:17)
[2021-07-13] MEDS: Aspirin Chewable 81 MG TAB PO SCH (08:18)
[2021-07-13] MEDS: Amlodipine 10 MG TAB PO SCH (08:18)
[2021-07-13] MEDS: hydrALAZINE 25 MG TAB PO SCH ×3 (08:18→21:08)
[2021-07-13] MEDS: Metoprolol Tartrate 50 MG TAB PO SCH ×2 (08:18→21:08)
[2021-07-13] MEDS ORDERED: Amlodipine 5 MG TAB PO SCH (09:00)
[2021-07-13] MEDS ORDERED: Fentanyl 100 MCG/2 ML VIAL ONE (10:37)
[2021-07-13] MEDS ORDERED: PROPOFOL 20 ML ONE (10:46)
[2021-07-13] MEDS ORDERED: Lidocaine 1% PF 5 ML VIAL ONE (12:22)
[2021-07-13] MEDS ORDERED: PROPOFOL 200 MG/20 ML VIAL ONE (12:22)
[2021-07-13] MEDS ORDERED: Promethazine HCl 25 MG/ML VIAL IM PRN (13:05)
[2021-07-13] MEDS ORDERED: Promethazine HCl 25 MG/ML VIAL IVPB PRN (13:05)
[2021-07-13] MEDS ORDERED: Ondansetron HCl/PF 4 MG/2 ML Vial IVP PRN (13:05)
[2021-07-13] MEDS ORDERED: Morphine 2 MG/ML VIAL SLOW IVP SCH (17:45)
[2021-07-13] MEDS ORDERED: Morphine 4 MG/ML VIAL SLOW IVP SCH (18:00)
[2021-07-13] MEDS: Melatonin 3 MG TAB PO SCH (21:08)
[2021-07-13] MEDS: Atorvastatin Calcium 40 MG TAB PO SCH (21:09)
[2021-07-14 06:24] LABS: #Basophils 0.1 thou/uL (0.0-0.2); #Eosinphils 0.3 thou/uL (0.0-0.7); #Lymphocytes 0.8 thou/uL (1.20-3.40); #Monocytes 0.5 thou/uL (0.11-0.59); #Neutrophils 5.4 thou/uL (1.40-6.50); %Basophils 0.8 % (0.0-1.0); %Eosinophils 4.3 % (0.0-10.0); %Lymphocytes 11.4 % (21.0-51.0); %Monocytes 7.5 % (0.0-10.0); Hemoglobin 9.3 g/dL (14.0-18.0); Mean Corpuscular HGB CONC 33.4 g/dL (32.0-36.0); Mean Corpuscular Hemoglobin 30.4 pg (27.0-31.0); Mean Corpuscular Volume 91.1 fL (78.0-98.0); Mean Platelet Volume 7.6 fL (7.4-10.4); Platelet Count 283 thou/uL (130-400); RBC Distribution Width 15.8 % (11.5-14.5); Red Blood Cell (RBC) Count 3.06 mill/uL (4.70-6.10); White Blood Cell (WBC) Count 7.1 thou/uL (4.8-10.8)
[2021-07-14] MEDS ORDERED: traMADol HCl 50 MG TAB PO PRN (06:32)
[2021-07-14] MEDS ORDERED: Fentanyl 100 MCG/2 ML VIAL SLOW IVP PRN (06:32)
[2021-07-14] MEDS ORDERED: Morphine 4 MG/ML VIAL SLOW IVP SCH ×2 (06:45→08:15)
[2021-07-14 06:51] LABS: Anion Gap 16 mmol/L (10-20); BUN (Urea Nitrogen) 43 mg/dL (8.4-25.7); Calc. Creatinine Clearance 13 mL/min (70-130); Calcium 8.6 mg/dL (7.8-10.44); Carbon Dioxide 25 mmol/L (22-29); Chloride 101 mmol/L (98-107); Glucose 76 mg/dL (70-105); Potassium 4.7 mmol/L (3.5-5.1); Sodium 137 mmol/L (136-145)
[2021-07-14] MEDS: Calcium Acetate 667 MG CAP PO SCH (07:43)
[2021-07-14] MEDS: Folic Acid/Vit B Comp W-C PO SCH (07:43)
[2021-07-14] MEDS: Acetaminophen 325 MG TAB PO SCH ×4 (07:44→20:51)
[2021-07-14] MEDS: Aspirin Chewable 81 MG TAB PO SCH (07:44)
[2021-07-14] MEDS ORDERED: Morphine 4 MG/ML VIAL SLOW IVP PRN (08:06)
[2021-07-14] MEDS ORDERED: methylPREDNISolone Sod Succ/PF 125 MG/2 ML VIAL IVP SCH (08:15)
[2021-07-14] MEDS: Metoprolol Tartrate 50 MG TAB PO SCH ×2 (10:51→20:51)
[2021-07-14] MEDS: Amlodipine 10 MG TAB PO SCH (10:51)
[2021-07-14] MEDS: hydrALAZINE 25 MG TAB PO SCH ×3 (10:59→20:51)
[2021-07-14] MEDS: EPOETIN ALFA-EPBX (ESRD) 10,000 UNIT/ML VIAL IVP SCH (13:04)
[2021-07-14] MEDS: Atorvastatin Calcium 40 MG TAB PO SCH (20:51)
[2021-07-14] MEDS: Melatonin 3 MG TAB PO SCH (20:51)
[2021-07-15] MEDS: traMADol HCl 50 MG TAB PO PRN ×2 (01:07→11:56)
[2021-07-15] MEDS: Acetaminophen 325 MG TAB PO SCH (01:08)
[2021-07-15] MEDS ORDERED: Acetaminophen 325 MG TAB PO PRN (04:58)
[2021-07-15 05:04] LABS: #Lymphocytes 0.3 thou/uL (1.20-3.40); #Monocytes 0.1 thou/uL (0.11-0.59); #Neutrophils 5.5 thou/uL (1.40-6.50); %Eosinophils 0.1 % (0.0-10.0); %Lymphocytes 5.7 % (21.0-51.0); %Monocytes 1.1 % (0.0-10.0); %Neutrophils 93.1 % (42.0-75.0); Hemoglobin 9.7 g/dL (14.0-18.0); Mean Corpuscular HGB CONC 32.9 g/dL (32.0-36.0); Mean Corpuscular Hemoglobin 30.5 pg (27.0-31.0); Mean Corpuscular Volume 92.7 fL (78.0-98.0); Mean Platelet Volume 7.5 fL (7.4-10.4); Platelet Count 304 thou/uL (130-400); RBC Distribution Width 15.7 % (11.5-14.5); Red Blood Cell (RBC) Count 3.17 mill/uL (4.70-6.10); White Blood Cell (WBC) Count 5.9 thou/uL (4.8-10.8)
[2021-07-15 05:19] LABS: Anion Gap 14 mmol/L (10-20); BUN (Urea Nitrogen) 30 mg/dL (8.4-25.7); Calc. Creatinine Clearance 16 mL/min (70-130); Carbon Dioxide 29 mmol/L (22-29); Chloride 100 mmol/L (98-107); Potassium 4.5 mmol/L (3.5-5.1); Sodium 138 mmol/L (136-145)
[2021-07-15 05:20] LABS: Calcium 8.6 mg/dL (7.8-10.44); Glucose 215 mg/dL (70-105)
[2021-07-15] MEDS ORDERED: predniSONE 20 MG TAB PO SCH (08:00)
[2021-07-15] MEDS: Folic Acid/Vit B Comp W-C PO SCH (08:59)
[2021-07-15] MEDS: Metoprolol Tartrate 50 MG TAB PO SCH (08:59)
[2021-07-15] MEDS: Aspirin Chewable 81 MG TAB PO SCH (08:59)
[2021-07-15] MEDS: Amlodipine 10 MG TAB PO SCH (09:00)
[2021-07-15] MEDS: Calcium Acetate 667 MG CAP PO SCH (09:00)
[2021-07-15] MEDS: hydrALAZINE 25 MG TAB PO SCH ×2 (09:59→11:57)
[2021-07-15 19:47] VITALS: BP 130/60; TEMP 97.8
== END 2021-07-15 20:35 | disposition home or self-care (01) | DRG 186 ==
LOC: ERS 12:55 → ERHOLD 15:43 → 2SE 23:39 → 2SW 07-13 12:56 → OBSVTOIN 07-13 14:17
PROVIDERS: ADMIT Family Medicine; ATTEND Family Medicine
PROC: 5A1D70Z Performance of Urinary Filtration, Intermittent, Less than 6 Hours Per Day (ICD-10-PCS; 2021-07-12)
PROC: 0W9B30Z Drainage of Left Pleural Cavity with Drainage Device, Percutaneous Approach (ICD-10-PCS; principal; 2021-07-13)
DX: J90 Pleural effusion, not elsewhere classified (principal); N18.6 End stage renal disease; Z20.822 Contact with and (suspected) exposure to COVID-19; I24.1 Dressler's syndrome; I50.32 Chronic diastolic (congestive) heart failure; I13.2 Hypertensive heart and chronic kidney disease with heart failure and with stage 5 chronic kidney disease, or end stage renal disease; I48.91 Unspecified atrial fibrillation; E11.22 Type 2 diabetes mellitus with diabetic chronic kidney disease; F32.A Depression, unspecified; D63.1 Anemia in chronic kidney disease; E88.09 Other disorders of plasma-protein metabolism, not elsewhere classified; Z90.49 Acquired absence of other specified parts of digestive tract; Z95.1 Presence of aortocoronary bypass graft; Z88.8 Allergy status to other drugs, medicaments and biological substances; Z79.82 Long term (current) use of aspirin; Z79.899 Other long term (current) drug therapy; Z99.2 Dependence on renal dialysis; Z86.73 Personal history of transient ischemic attack (TIA), and cerebral infarction without residual deficits; Z95.810 Presence of automatic (implantable) cardiac defibrillator
CPT/HCPCS: 36415; 36416; 71045; 80048; 80053; 82553; 83880; 84484; 85025; 90935; 93005; 96372; C1729; G0257; G0378; J1644; J1815; J2270; J2704; J2930; J3010; J7512; Q5105; U0002

== ENCOUNTER 2021-07-19 12:23 | Emergency (ER) | payer MEDICARE, MEDICAID ==
[2021-07-19 14:17] LABS: #Eosinphils 0.1 thou/uL (0.0-0.7); #Monocytes 0.7 thou/uL (0.11-0.59); #Neutrophils 5.6 thou/uL (1.40-6.50); %Basophils 0.1 % (0.0-1.0); %Eosinophils 0.9 % (0.0-10.0); %Lymphocytes 13.7 % (21.0-51.0); %Monocytes 8.9 % (0.0-10.0); %Neutrophils 76.4 % (42.0-75.0); Hemoglobin 10.1 g/dL (14.0-18.0); Mean Corpuscular HGB CONC 32.7 g/dL (32.0-36.0); Mean Corpuscular Hemoglobin 29.4 pg (27.0-31.0); Mean Corpuscular Volume 89.8 fL (78.0-98.0); Mean Platelet Volume 7.8 fL (7.4-10.4); Platelet Count 287 thou/uL (130-400); Red Blood Cell (RBC) Count 3.43 mill/uL (4.70-6.10); White Blood Cell (WBC) Count 7.3 thou/uL (4.8-10.8)
[2021-07-19 14:41] LABS: ALT (SGPT) 241 U/L (8-55); AST (SGOT) 166 U/L (5-34); Albumin 3.1 g/dL (3.5-5.0); Alkaline Phosphatase 131 U/L (40-110); Anion Gap 13 mmol/L (10-20); BUN (Urea Nitrogen) 25 mg/dL (8.4-25.7); Bilirubin, Total 0.4 mg/dL (0.2-1.2); Calc. Creatinine Clearance 0 mL/min (70-130); Calcium 8.8 mg/dL (7.8-10.44); Carbon Dioxide 30 mmol/L (22-29); Chloride 99 mmol/L (98-107); Globulin 2.6 g/dL (2.4-3.5); Glucose 252 mg/dL (70-105); Potassium 3.8 mmol/L (3.5-5.1); Protein, Total 5.7 g/dL (6.0-8.3); Sodium 138 mmol/L (136-145)
== END 2021-07-19 14:30 | disposition home or self-care (01) ==
LOC: ERS 12:23
DX: M94.0 Chondrocostal junction syndrome [Tietze] (principal); I12.0 Hypertensive chronic kidney disease with stage 5 chronic kidney disease or end stage renal disease; E11.22 Type 2 diabetes mellitus with diabetic chronic kidney disease; N18.6 End stage renal disease; Z99.2 Dependence on renal dialysis; Z86.73 Personal history of transient ischemic attack (TIA), and cerebral infarction without residual deficits; Z79.82 Long term (current) use of aspirin; Z79.899 Other long term (current) drug therapy
CPT/HCPCS: 36415; 80053; 85025; 99284

== ENCOUNTER 2021-08-11 12:52 | Emergency (ER) | payer MEDICARE, MEDICAID | END 2021-08-11 15:08 | disposition home or self-care (01) | LOC: ERS 12:52 | DX: Z48.817 Encounter for surgical aftercare following surgery on the skin and subcutaneous tissue (principal); I12.0 Hypertensive chronic kidney disease with stage 5 chronic kidney disease or end stage renal disease; E11.22 Type 2 diabetes mellitus with diabetic chronic kidney disease; Z99.2 Dependence on renal dialysis; Z86.73 Personal history of transient ischemic attack (TIA), and cerebral infarction without residual deficits; Z87.891 Personal history of nicotine dependence; Z79.82 Long term (current) use of aspirin; Z79.899 Other long term (current) drug therapy | CPT/HCPCS: 71046 ==

== ENCOUNTER 2021-09-04 12:46 | Emergency (ER) | payer MEDICARE, MEDICAID ==
[2021-09-04 14:29] LABS: #Basophils 0.1 thou/uL (0.0-0.2); #Eosinphils 0.1 thou/uL (0.0-0.7); #Lymphocytes 0.5 thou/uL (1.20-3.40); #Monocytes 0.5 thou/uL (0.11-0.59); #Neutrophils 4.6 thou/uL (1.40-6.50); %Eosinophils 2.4 % (0.0-10.0); %Lymphocytes 7.9 % (21.0-51.0); %Monocytes 9.2 % (0.0-10.0); %Neutrophils 79.6 % (42.0-75.0); Hemoglobin 10.9 g/dL (14.0-18.0); Mean Corpuscular HGB CONC 32.7 g/dL (32.0-36.0); Mean Corpuscular Hemoglobin 30.5 pg (27.0-31.0); Mean Corpuscular Volume 93.2 fL (78.0-98.0); Mean Platelet Volume 6.9 fL (7.4-10.4); Platelet Count 327 thou/uL (130-400); RBC Distribution Width 15.1 % (11.5-14.5); Red Blood Cell (RBC) Count 3.58 mill/uL (4.70-6.10); White Blood Cell (WBC) Count 5.8 thou/uL (4.8-10.8)
[2021-09-04 14:57] LABS: ALT (SGPT) 24 U/L (8-55); AST (SGOT) 17 U/L (5-34); Albumin 3.4 g/dL (3.5-5.0); Alkaline Phosphatase 105 U/L (40-110); Anion Gap 16 mmol/L (10-20); BUN (Urea Nitrogen) 30 mg/dL (8.4-25.7); Bilirubin, Total 0.5 mg/dL (0.2-1.2); Calc. Creatinine Clearance 0 mL/min (70-130); Calcium 9.3 mg/dL (7.8-10.44); Carbon Dioxide 24 mmol/L (22-29); Chloride 96 mmol/L (98-107); Globulin 3.2 g/dL (2.4-3.5); Glucose 140 mg/dL (70-105); Potassium 4.3 mmol/L (3.5-5.1); Protein, Total 6.6 g/dL (6.0-8.3); Sodium 132 mmol/L (136-145)
[2021-09-04] MEDS ORDERED: traMADol HCl 50 MG TAB ONE (15:28)
== END 2021-09-04 16:58 | disposition home or self-care (01) ==
LOC: ERS 12:46
DX: T82.838A Hemorrhage due to vascular prosthetic devices, implants and grafts, initial encounter (principal); I13.2 Hypertensive heart and chronic kidney disease with heart failure and with stage 5 chronic kidney disease, or end stage renal disease; E11.22 Type 2 diabetes mellitus with diabetic chronic kidney disease; N18.6 End stage renal disease; I50.9 Heart failure, unspecified; Z99.2 Dependence on renal dialysis; Z87.891 Personal history of nicotine dependence; Z79.899 Other long term (current) drug therapy
CPT/HCPCS: 36415; 71045; 80053; 85025; 93005

== ENCOUNTER 2021-09-07 14:40 | Emergency (ER) | payer MEDICARE, MEDICAID ==
[2021-09-07] MEDS ORDERED: Ondansetron ODT 4 MG TAB ONE (14:52)
[2021-09-07 15:09] LABS: #Eosinphils 0.1 thou/uL (0.0-0.7); #Lymphocytes 0.7 thou/uL (1.20-3.40); #Monocytes 0.6 thou/uL (0.11-0.59); #Neutrophils 5.3 thou/uL (1.40-6.50); %Basophils 0.4 % (0.0-1.0); %Eosinophils 2.2 % (0.0-10.0); %Lymphocytes 10.2 % (21.0-51.0); %Monocytes 8.9 % (0.0-10.0); %Neutrophils 78.3 % (42.0-75.0); Hemoglobin 10.3 g/dL (14.0-18.0); Mean Corpuscular HGB CONC 32.6 g/dL (32.0-36.0); Mean Corpuscular Hemoglobin 30.5 pg (27.0-31.0); Mean Corpuscular Volume 93.3 fL (78.0-98.0); Mean Platelet Volume 6.7 fL (7.4-10.4); Platelet Count 324 thou/uL (130-400); RBC Distribution Width 14.8 % (11.5-14.5); Red Blood Cell (RBC) Count 3.37 mill/uL (4.70-6.10); White Blood Cell (WBC) Count 6.7 thou/uL (4.8-10.8)
[2021-09-07 15:29] LABS: ALT (SGPT) 18 U/L (8-55); AST (SGOT) 14 U/L (5-34); Albumin 3.2 g/dL (3.5-5.0); Alkaline Phosphatase 98 U/L (40-110); Anion Gap 14 mmol/L (10-20); BUN (Urea Nitrogen) 43 mg/dL (8.4-25.7); Bilirubin, Total 0.4 mg/dL (0.2-1.2); Calc. Creatinine Clearance 0 mL/min (70-130); Calcium 9.4 mg/dL (7.8-10.44); Carbon Dioxide 30 mmol/L (22-29); Chloride 96 mmol/L (98-107); Globulin 3.1 g/dL (2.4-3.5); Glucose 118 mg/dL (70-105); Potassium 4.3 mmol/L (3.5-5.1); Protein, Total 6.3 g/dL (6.0-8.3); Sodium 136 mmol/L (136-145)
[2021-09-07] MEDS ORDERED: Lidocaine 1% w/Epinephrine 1:100K 20 ML VIAL ONE (17:12)
== END 2021-09-07 18:22 | disposition home or self-care (01) ==
LOC: ERS 14:40
DX: T85.848A Pain due to other internal prosthetic devices, implants and grafts, initial encounter (principal); R06.02 Shortness of breath; E11.22 Type 2 diabetes mellitus with diabetic chronic kidney disease; I12.0 Hypertensive chronic kidney disease with stage 5 chronic kidney disease or end stage renal disease; N18.6 End stage renal disease; Z87.891 Personal history of nicotine dependence; Z99.2 Dependence on renal dialysis; Z86.73 Personal history of transient ischemic attack (TIA), and cerebral infarction without residual deficits; Z79.82 Long term (current) use of aspirin
CPT/HCPCS: 71045; 80053; 85025; 93005; Q0162

== ENCOUNTER 2021-10-03 14:46 | Outpatient (CLI) | payer MEDICARE, MEDICAID | END 2021-10-03 14:47 | disposition home or self-care (01) | LOC: RAD 14:46 → EDSTATUS 14:50 | PROVIDERS: ATTEND Internal Medicine | DX: R06.00 Dyspnea, unspecified (principal) | CPT/HCPCS: 71046 ==

== ENCOUNTER 2021-10-23 19:30 | Outpatient (CLI) | payer MEDICARE, MEDICAID | END 2021-10-23 19:31 | disposition home or self-care (01) | LOC: SLEEPLAB 19:30 | PROVIDERS: ATTEND Internal Medicine | DX: G47.33 Obstructive sleep apnea (adult) (pediatric) (principal); R53.83 Other fatigue; G47.10 Hypersomnia, unspecified; G47.00 Insomnia, unspecified; I25.10 Atherosclerotic heart disease of native coronary artery without angina pectoris; I12.0 Hypertensive chronic kidney disease with stage 5 chronic kidney disease or end stage renal disease; E11.22 Type 2 diabetes mellitus with diabetic chronic kidney disease; N18.6 End stage renal disease; I63.9 Cerebral infarction, unspecified; G47.31 Primary central sleep apnea | CPT/HCPCS: 95810 ==

== ENCOUNTER 2022-06-22 13:10 | Outpatient (CLI) | payer MEDICARE, MEDICAID | END 2022-06-22 13:11 | disposition home or self-care (01) | LOC: BICCT 13:10 | PROVIDERS: ATTEND Student in an Organized Health Care Education/Training Program | DX: Z12.2 Encounter for screening for malignant neoplasm of respiratory organs (principal); F17.211 Nicotine dependence, cigarettes, in remission | CPT/HCPCS: 71271 ==

== ENCOUNTER 2022-10-31 20:15 | Inpatient (IN) | payer MEDICARE, MEDICAID ==
[2022-10-31] MEDS ORDERED: Ondansetron PF 4 MG/2 ML Vial ONE (21:03)
[2022-10-31] MEDS ORDERED: Aspirin Chewable 81 MG TAB ONE (21:03)
[2022-10-31 21:13] LABS: Hemoglobin 13.8 g/dL (14.0-18.0); Mean Corpuscular HGB CONC 32.1 g/dL (32.0-36.0); Mean Corpuscular Volume 96.6 fl (78.0-98.0); RBC Distribution Width 15.8 % (11.5-14.5); Red Blood Cell (RBC) Count 4.44 mill/uL (4.70-6.10); White Blood Cell (WBC) Count 7.1 10x3/uL (4.8-10.8)
[2022-10-31 21:27] LABS: #Eosinphils 0.1 thou/uL (0.0-0.7); #Lymphocytes 0.3 thou/uL (1.20-3.40); #Monocytes 0.2 thou/uL (0.11-0.59); #Neutrophils 6.6 thou/uL (1.40-6.50); %Lymphocytes 4.3 % (21.0-51.0); %Monocytes 2.2 % (0.0-10.0); %Neutrophils 92.5 % (42.0-75.0); Mean Platelet Volume 9.8 fL (7.4-10.4); Platelet Count 107 10x3/uL (130-400); Platelet Morphology Comment Appears Decreased
[2022-10-31 21:29] LABS: ALT (SGPT) 101 U/L (8-55); AST (SGOT) 55 U/L (5-34); Albumin 4.3 g/dL (3.5-5.0); Alkaline Phosphatase 199 U/L (40-110); Anion Gap 20 mmol/L (10-20); BUN (Urea Nitrogen) 63 mg/dL (8.4-25.7); Bilirubin, Total 1.5 mg/dL (0.2-1.2); Calc. Creatinine Clearance 0 mL/min (70-130); Calcium 9.3 mg/dL (7.8-10.44); Carbon Dioxide 28 mmol/L (22-29); Chloride 94 mmol/L (98-107); Estimated GFR 7; Globulin 3.6 g/dL (2.4-3.5); Glucose 105 mg/dL (70-105); Lipase 248 U/L (8-78); Protein, Total 7.9 g/dL (6.0-8.3); Sodium 135 mmol/L (136-145)
[2022-10-31 21:38] LABS: Potassium 6.6 mmol/L (3.5-5.1)
[2022-10-31 21:49] LABS: CKMB 2.4 ng/mL (0-6.6)
[2022-10-31] MEDS ORDERED: Dextrose 50% Abboject 50 ML SYRINGE ONE (22:55)
[2022-10-31] MEDS ORDERED: CALCIUM GLUC 1 GM/NS 50 ML BAG ONE (22:55)
[2022-10-31] MEDS ORDERED: Insulin Regular 300 UNITS/3 ML VIAL ONE (22:55)
[2022-11-01] MEDS ORDERED: Morphine 4 MG/ML VIAL ONE (00:03)
[2022-11-01] MEDS ORDERED: Ondansetron ODT 4 MG TAB PO PRN (00:10)
[2022-11-01] MEDS ORDERED: Acetaminophen 325 MG TAB PO PRN (00:10)
[2022-11-01] MEDS ORDERED: Lactated Ringer's 1,000 ML IV SCH ×2 (00:30→07:33)
[2022-11-01] MEDS ORDERED: Fentanyl 100 MCG/2 ML VIAL SLOW IVP PRN ×2 (00:32→02:32)
[2022-11-01 00:55] LABS: Troponin I 0.042 ng/mL (< 0.028)
[2022-11-01 01:02] LABS: ALT (SGPT) 91 U/L (8-55); AST (SGOT) 42 U/L (5-34); Albumin 3.7 g/dL (3.5-5.0); Alkaline Phosphatase 176 U/L (40-110); Anion Gap 19 mmol/L (10-20); BUN (Urea Nitrogen) 65 mg/dL (8.4-25.7); Bilirubin, Total 1.3 mg/dL (0.2-1.2); Calc. Creatinine Clearance 11 mL/min (70-130); Carbon Dioxide 21 mmol/L (22-29); Chloride 99 mmol/L (98-107); Estimated GFR 7; Globulin 3.1 g/dL (2.4-3.5); Glucose 101 mg/dL (70-105); Potassium 4.4 mmol/L (3.5-5.1); Protein, Total 6.8 g/dL (6.0-8.3); Sodium 135 mmol/L (136-145)
[2022-11-01] MEDS ORDERED: Fentanyl 100 MCG/2 ML VIAL ONE (01:06)
[2022-11-01 01:07] LABS: Hemoglobin A1c 6.4 % (4.0-6.0)
[2022-11-01 01:27] LABS: SARS-CoV-2 NAA Rapid Test Not Detected (NotDetected)
[2022-11-01 05:48] LABS: Troponin I 0.097 ng/mL (< 0.028)
[2022-11-01 05:50] LABS: #Lymphocytes 0.2 thou/uL (1.20-3.40); #Monocytes 0.2 thou/uL (0.11-0.59); #Neutrophils 4.4 thou/uL (1.40-6.50); %Basophils 0.2 % (0.0-1.0); %Eosinophils 0.3 % (0.0-10.0); %Monocytes 4.3 % (0.0-10.0); %Neutrophils 90.1 % (42.0-75.0); Hemoglobin 12.1 g/dL (14.0-18.0); Mean Corpuscular HGB CONC 33.4 g/dL (32.0-36.0); Mean Corpuscular Hemoglobin 32.1 pg (27.0-31.0); Mean Corpuscular Volume 96.1 fl (78.0-98.0); Mean Platelet Volume 9.7 fL (7.4-10.4); Platelet Count 89 10x3/uL (130-400); RBC Distribution Width 15.7 % (11.5-14.5); Red Blood Cell (RBC) Count 3.78 mill/uL (4.70-6.10); White Blood Cell (WBC) Count 4.9 10x3/uL (4.8-10.8)
[2022-11-01 05:59] LABS: ALT (SGPT) 89 U/L (8-55); AST (SGOT) 43 U/L (5-34); Albumin 3.8 g/dL (3.5-5.0); Alkaline Phosphatase 183 U/L (40-110); Anion Gap 13 mmol/L (10-20); BUN (Urea Nitrogen) 26 mg/dL (8.4-25.7); Bilirubin, Total 1.5 mg/dL (0.2-1.2); Calc. Creatinine Clearance 24 mL/min (70-130); Carbon Dioxide 29 mmol/L (22-29); Cardiac Risk 1.8 (Less than 4.5); Chloride 97 mmol/L (98-107); Cholesterol 116 mg/dl (< 200 Desired); Estimated GFR 17; Glucose 93 mg/dL (70-105); HDL Cholesterol 66 mg/dL (>60 Neg Risk); LDL Cholesterol, Calculated 42 mg/dL; Lipase 317 U/L (8-78); Potassium 3.3 mmol/L (3.5-5.1); Protein, Total 6.8 g/dL (6.0-8.3); Sodium 136 mmol/L (136-145); Triglycerides 41 mg/dL (Less than 150)
[2022-11-01 06:05] LABS: HIV (1/2) Antibody/Antigen Non-Reactive (NonReactive); HIV 1/2 INDEX 0.36 S/CO (<1.00)
[2022-11-01] MEDS ORDERED: Heparin 10,000 UNITS/ 10 ML VIAL ONE ×2 (08:41→10:34)
[2022-11-01] MEDS ORDERED: Amlodipine 5 MG TAB PO SCH (09:00)
[2022-11-01] MEDS ORDERED: Heparin 5,000 UNITS/ML VIAL SC SCH (09:00)
[2022-11-01] MEDS ORDERED: Diclofenac 1% 100 GM GEL TP SCH (09:00)
[2022-11-01] MEDS ORDERED: Aspirin Chewable 81 MG TAB PO SCH (09:00)
[2022-11-01] MEDS ORDERED: Potassium Chloride 20 MEQ TAB PO SCH (09:15)
[2022-11-01] MEDS ORDERED: Ketorolac Tromethamine 30 MG/ML VIAL IVP SCH (09:15)
[2022-11-01] MEDS ORDERED: Amlodipine 5 MG TAB ONE (10:34)
[2022-11-01] MEDS ORDERED: Potassium Chloride 20 MEQ TAB ONE (10:34)
[2022-11-01] MEDS ORDERED: Aspirin Chewable 81 MG TAB ONE (10:34)
[2022-11-01] MEDS ORDERED: Ketorolac Tromethamine 30 MG/ML VIAL ONE (10:34)
[2022-11-01 12:52] VITALS: BP 129/66; TEMP 97.7
[2022-11-01 13:04] VITALS: BMI 27.9
[2022-11-01] MEDS ORDERED: Atorvastatin Calcium 40 MG TAB PO SCH (21:00)
== END 2022-11-01 15:16 | disposition home or self-care (01) | DRG 205 ==
LOC: ERS 20:15 → 2SW 23:37 → ERHOLD 23:50 → 2SW 11-01 12:37
PROVIDERS: ADMIT Family Medicine; ATTEND Family Medicine
PROC: 5A1D70Z Performance of Urinary Filtration, Intermittent, Less than 6 Hours Per Day (ICD-10-PCS; principal; 2022-10-31)
DX: M94.0 Chondrocostal junction syndrome [Tietze] (principal); N18.6 End stage renal disease; I12.0 Hypertensive chronic kidney disease with stage 5 chronic kidney disease or end stage renal disease; E78.5 Hyperlipidemia, unspecified; E87.6 Hypokalemia; E87.5 Hyperkalemia; D63.1 Anemia in chronic kidney disease; E11.22 Type 2 diabetes mellitus with diabetic chronic kidney disease; Z87.891 Personal history of nicotine dependence; Z88.2 Allergy status to sulfonamides; Z88.8 Allergy status to other drugs, medicaments and biological substances; Z79.82 Long term (current) use of aspirin; Z79.899 Other long term (current) drug therapy; Z95.1 Presence of aortocoronary bypass graft; Z90.49 Acquired absence of other specified parts of digestive tract
CPT/HCPCS: 36415; 71045; 74176; 80053; 80061; 82553; 83036; 83605; 83690; 84443; 84484; 85025; 87389; 93005; 96374; 96375; J0611; J1644; J1815; J1885; J2270; J2405; J3010; J7120; J7999

== ENCOUNTER 2023-11-29 17:00 | Outpatient (CLI) | payer MEDICARE, MEDICAID | END 2023-11-29 17:01 | disposition home or self-care (01) | LOC: SLEEPLAB 17:00 | PROVIDERS: ATTEND Student in an Organized Health Care Education/Training Program | DX: G47.33 Obstructive sleep apnea (adult) (pediatric) (principal); R53.83 Other fatigue; E66.9 Obesity, unspecified; R06.83 Snoring; Z68.29 Body mass index [BMI] 29.0-29.9, adult | CPT/HCPCS: 95811 ==

== ENCOUNTER 2024-02-04 10:22 | Emergency (ER) | payer MEDICARE, MEDICAID ==
[2024-02-04 12:08] LABS: Actual Bicarbonate (HCO3v) 22.7 mEq/L (22-28); Analyzer IN Cardio ER; Base Excess -1.1 mEq/L (-2.0 to +3.0); Calcium, Ionized (venous) 1.18 mmol/L (1.16-1.32); Chloride (VBG) 96 mmol/L (98-106); Hematocrit-VBG 36 % (42.0-52.0); Hemoglobin (Hb) 12.3 g/dL (13.1-17.2); Potassium (VBG) 4.38 mmol/L (3.70-5.30); Sodium 137 mmol/L (133-146); pH (venous) 7.434 (7.32-7.43)
[2024-02-04 12:42] LABS: Acetaminophen Less than 10 mcg/mL (10.0-30.0); Alcohol Less than 10.0 mg/dL (Less than 10); Lipase 28 U/L (8-78); Salicylate Less than 8.0 mg/dL (15.0-30.0)
[2024-02-04 12:50] LABS: Troponin I 0.072 ng/mL (< 0.028)
[2024-02-04 13:11] LABS: Globulin 3.8 g/dL (2.4-3.5)
[2024-02-04 13:16] LABS: ALT (SGPT) 32 U/L (8-55); AST (SGOT) 29 U/L (5-34); Albumin 3.7 g/dL (3.5-5.0); Alkaline Phosphatase 270 U/L (40-110); Anion Gap 20 mmol/L (10-20); BUN (Urea Nitrogen) 61 mg/dL (8.4-25.7); Bilirubin, Total 1.7 mg/dL (0.2-1.2); Calc. Creatinine Clearance 0 mL/min (70-130); Calcium 10.4 mg/dL (7.8-10.44); Carbon Dioxide 23 mmol/L (22-29); Chloride 98 mmol/L (98-107); Estimated GFR 6; Glucose 115 mg/dL (70-105); Potassium 4.3 mmol/L (3.5-5.1); Protein, Total 7.5 g/dL (6.0-8.3); Sodium 137 mmol/L (136-145)
[2024-02-04 14:32] LABS: #Basophils 0.05 10x3/uL (0.0-0.2); %Basophils 0.9 % (0.0-1.0); %Eosinophils 2.1 % (0.0-10.0); %Monocytes 10.2 % (0.0-10.0); %Neutrophils 74.6 % (42.0-75.0); Hematocrit 34.2 % (42.0-52.0); Hemoglobin 11.4 g/dL (14.0-18.0); Mean Corpuscular HGB CONC 33.3 g/dL (32.0-36.0); Mean Corpuscular Hemoglobin 32.3 pg (27.0-31.0); Mean Corpuscular Volume 96.9 fL (78.0-98.0); Mean Platelet Volume 11.2 fL (7.4-10.4); Platelet Count 125 10x3/uL (130-400); RBC Distribution Width 17.3 % (11.5-14.5); Red Blood Cell (RBC) Count 3.53 mill/uL (4.70-6.10)
[2024-02-04 16:04] LABS: Troponin I 0.063 ng/mL (< 0.028)
== END 2024-02-04 21:08 ==
LOC: ERS 10:22
DX: R55 Syncope and collapse (principal); M54.50 Low back pain, unspecified; I12.0 Hypertensive chronic kidney disease with stage 5 chronic kidney disease or end stage renal disease; E11.22 Type 2 diabetes mellitus with diabetic chronic kidney disease; N18.6 End stage renal disease; Z99.2 Dependence on renal dialysis; Z87.891 Personal history of nicotine dependence; Z86.73 Personal history of transient ischemic attack (TIA), and cerebral infarction without residual deficits; Z79.82 Long term (current) use of aspirin; Z79.899 Other long term (current) drug therapy; W19.XXXA Unspecified fall, initial encounter
CPT/HCPCS: 36415; 70450; 71045; 72125; 80053; 80307; 82140; 82805; 83605; 83690; 84484; 85025; 93005

== ENCOUNTER 2024-02-17 12:36 | Emergency (ER) | payer MEDICAID, MEDICARE ==
[2024-02-17 15:07] LABS: ALT (SGPT) 30 U/L (8-55); AST (SGOT) 26 U/L (5-34); Albumin 3.3 g/dL (3.5-5.0); Alkaline Phosphatase 219 U/L (40-110); Anion Gap 19 mmol/L (10-20); BUN (Urea Nitrogen) 50 mg/dL (8.4-25.7); Bilirubin, Total 1.7 mg/dL (0.2-1.2); Calc. Creatinine Clearance 0 mL/min (70-130); Calcium 9.8 mg/dL (7.8-10.44); Carbon Dioxide 26 mmol/L (22-29); Chloride 101 mmol/L (98-107); Estimated GFR 6; Globulin 3.4 g/dL (2.4-3.5); Glucose 98 mg/dL (70-105); Potassium 4.6 mmol/L (3.5-5.1); Protein, Total 6.7 g/dL (6.0-8.3); Sodium 141 mmol/L (136-145)
[2024-02-17 15:13] LABS: #Basophils 0.03 10x3/uL (0.0-0.2); %Basophils 0.8 % (0.0-1.0); %Eosinophils 4.3 % (0.0-10.0); %Lymphocytes 11.9 % (21.0-51.0); %Monocytes 11.4 % (0.0-10.0); %Neutrophils 71.1 % (42.0-75.0); Hematocrit 28.6 % (42.0-52.0); Hemoglobin 9.6 g/dL (14.0-18.0); Mean Corpuscular HGB CONC 33.6 g/dL (32.0-36.0); Mean Corpuscular Hemoglobin 32.7 pg (27.0-31.0); Mean Corpuscular Volume 97.3 fL (78.0-98.0); Mean Platelet Volume 9.9 fL (7.4-10.4); Platelet Count 119 10x3/uL (130-400); RBC Distribution Width 18.6 % (11.5-14.5); Red Blood Cell (RBC) Count 2.94 mill/uL (4.70-6.10); Troponin I 0.065 ng/mL (< 0.028)
== END 2024-02-17 21:27 | disposition home or self-care (01) ==
LOC: ERS 12:36
DX: E87.70 Fluid overload, unspecified (principal); I12.0 Hypertensive chronic kidney disease with stage 5 chronic kidney disease or end stage renal disease; N18.6 End stage renal disease; E11.22 Type 2 diabetes mellitus with diabetic chronic kidney disease; Z99.2 Dependence on renal dialysis; Z87.891 Personal history of nicotine dependence; Z79.82 Long term (current) use of aspirin
CPT/HCPCS: 36415; 71045; 80053; 83880; 84484; 85025; 93005

== ENCOUNTER 2024-03-14 18:16 | Emergency (ER) | payer MEDICARE, OTHER ==
[2024-03-14] MEDS ORDERED: Acetaminophen 500 MG TAB ONE (18:54)
== END 2024-03-14 18:57 | disposition home or self-care (01) ==
LOC: ERS 18:16
DX: R60.0 Localized edema (principal); I12.0 Hypertensive chronic kidney disease with stage 5 chronic kidney disease or end stage renal disease; E11.22 Type 2 diabetes mellitus with diabetic chronic kidney disease; N18.6 End stage renal disease; Z99.2 Dependence on renal dialysis; Z86.73 Personal history of transient ischemic attack (TIA), and cerebral infarction without residual deficits; Z95.0 Presence of cardiac pacemaker; Z87.891 Personal history of nicotine dependence; Z55.6 Problems related to health literacy
CPT/HCPCS: 99283

== ENCOUNTER 2024-04-10 16:20 | Emergency (ER) | payer MEDICARE, MEDICAID ==
[2024-04-10] MEDS ORDERED: fentaNYL 50 mcg/mL 1 mL Vial ONE (16:51)
[2024-04-10 17:59] LABS: Bilirubin Negative (Negative); Blood, Urine Trace (Negative); CAUTI Indications for Culture Dysuria,urgency,freq; Clarity Turbid (Clear); Glucose, Urine (Dipstick) 100 mg/dL (Negative); Ketone, Urine Negative (Negative); Leukocyte 75 Leu/uL (Negative); Nitrite Negative (Negative); Protein, Urine (Dipstick) 300 mg/dL (Neg-Trace); Specific Gravity, Urine 1.009 (1.002-1.036); Squamous Epithelial 0-3 HPF (0-3); Urobilinogen Normal mg/dL (Less than 2); pH, Urine 8.5 (5.0-9.0)
[2024-04-10 18:10] LABS: Bacteria/HPF Rare-Few HPF (None Seen); WBC/HPF 21-50 HPF (0-3)
[2024-04-10 18:11] LABS: Urine Culture Reflex Yes Yes
[2024-04-10] MEDS ORDERED: Ketorolac Tromethamine 30 MG (1 mL) VIAL ONE (19:33)
== END 2024-04-10 20:18 | disposition home or self-care (01) ==
LOC: ERS 16:20
DX: N48.1 Balanitis (principal); I86.1 Scrotal varices; N43.3 Hydrocele, unspecified; E11.9 Type 2 diabetes mellitus without complications; I10 Essential (primary) hypertension; Z95.0 Presence of cardiac pacemaker; Z79.82 Long term (current) use of aspirin; Z79.899 Other long term (current) drug therapy
CPT/HCPCS: 76870; 81001; 87086; 93976; J1885; J3010; 51701; 96372

== ENCOUNTER 2024-04-17 12:57 | Emergency (ER) | payer MEDICARE, OTHER | END 2024-04-17 14:34 | disposition home or self-care (01) | LOC: ERS 12:57 | DX: N48.1 Balanitis (principal); I12.0 Hypertensive chronic kidney disease with stage 5 chronic kidney disease or end stage renal disease; E11.22 Type 2 diabetes mellitus with diabetic chronic kidney disease; N18.6 End stage renal disease; Z99.2 Dependence on renal dialysis; Z86.73 Personal history of transient ischemic attack (TIA), and cerebral infarction without residual deficits; Z95.0 Presence of cardiac pacemaker; Z79.82 Long term (current) use of aspirin; Z79.899 Other long term (current) drug therapy | CPT/HCPCS: 99283 ==

== ENCOUNTER 2024-04-27 09:02 | Emergency (ER) | payer MEDICARE, OTHER ==
[2024-04-27 10:33] LABS: #Basophils 0.05 10x3/uL (0.0-0.2); %Basophils 0.6 % (0.0-1.0); %Eosinophils 1.3 % (0.0-10.0); %Lymphocytes 6.8 % (21.0-51.0); %Monocytes 8.2 % (0.0-10.0); %Neutrophils 82.7 % (42.0-75.0); Hematocrit 31.7 % (42.0-52.0); Hemoglobin 10.5 g/dL (14.0-18.0); Mean Corpuscular HGB CONC 33.1 g/dL (32.0-36.0); Mean Corpuscular Hemoglobin 31.6 pg (27.0-31.0); Mean Corpuscular Volume 95.5 fL (78.0-98.0); Mean Platelet Volume 10.1 fL (7.4-10.4); Platelet Count 147 10x3/uL (130-400); RBC Distribution Width 17.4 % (11.5-14.5); Red Blood Cell (RBC) Count 3.32 mill/uL (4.70-6.10)
[2024-04-27 10:46] LABS: ALT (SGPT) 37 U/L (8-55); AST (SGOT) 29 U/L (5-34); Albumin 3.9 g/dL (3.5-5.0); Alkaline Phosphatase 289 U/L (40-110); Anion Gap 19 mmol/L (10-20); BUN (Urea Nitrogen) 58 mg/dL (8.4-25.7); Bilirubin, Total 1.6 mg/dL (0.2-1.2); Calc. Creatinine Clearance 0 mL/min (70-130); Calcium 10.8 mg/dL (7.8-10.44); Carbon Dioxide 27 mmol/L (22-29); Chloride 98 mmol/L (98-107); Estimated GFR 8; Glucose 89 mg/dL (70-105); Protein, Total 7.9 g/dL (6.0-8.3); Sodium 140 mmol/L (136-145)
[2024-04-27 11:00] LABS: INR-International Normal Ratio 1.2; Prothrombin Time 14.8 sec (12.0-14.7)
[2024-04-27 11:01] LABS: PTT 33.3 sec (22.9-36.1)
[2024-04-27] MEDS ORDERED: Lidocaine 4% Cream 5 GM TUBE w/ Tegaderm TOP SCH (15:30)
== END 2024-04-27 15:27 | disposition home or self-care (01) ==
LOC: ERS 09:02
DX: D17.71 Benign lipomatous neoplasm of kidney (principal); N48.89 Other specified disorders of penis; E80.6 Other disorders of bilirubin metabolism; I12.0 Hypertensive chronic kidney disease with stage 5 chronic kidney disease or end stage renal disease; E11.22 Type 2 diabetes mellitus with diabetic chronic kidney disease; N18.6 End stage renal disease; R60.1 Generalized edema; R31.0 Gross hematuria; R59.0 Localized enlarged lymph nodes; Z99.2 Dependence on renal dialysis; Z95.0 Presence of cardiac pacemaker; Z86.73 Personal history of transient ischemic attack (TIA), and cerebral infarction without residual deficits; Z79.82 Long term (current) use of aspirin; Z79.899 Other long term (current) drug therapy
CPT/HCPCS: 36415; 74176; 80053; 85025; 85610; 85730

== ENCOUNTER 2024-06-17 08:38 | Emergency (ER) | payer MEDICARE, MEDICAID, OTHER ==
[2024-06-17] MEDS ORDERED: Ketorolac Tromethamine 30 MG (1 mL) VIAL ONE (09:31)
[2024-06-17] MEDS ORDERED: Morphine 4 MG/ML VIAL ONE (09:32)
[2024-06-17 09:53] LABS: #Basophils 0.05 10x3/uL (0.0-0.2); %Basophils 0.9 % (0.0-1.0); %Eosinophils 1.8 % (0.0-10.0); %Lymphocytes 8.3 % (21.0-51.0); %Monocytes 10.7 % (0.0-10.0); %Neutrophils 78.1 % (42.0-75.0); Hematocrit 33.3 % (42.0-52.0); Hemoglobin 10.8 g/dL (14.0-18.0); Mean Corpuscular HGB CONC 32.4 g/dL (32.0-36.0); Mean Corpuscular Hemoglobin 31.7 pg (27.0-31.0); Mean Corpuscular Volume 97.7 fL (78.0-98.0); Mean Platelet Volume 9.7 fL (7.4-10.4); Platelet Count 141 10x3/uL (130-400); RBC Distribution Width 18.3 % (11.5-14.5); Red Blood Cell (RBC) Count 3.41 mill/uL (4.70-6.10)
[2024-06-17 10:07] LABS: ALT (SGPT) 21 U/L (8-55); AST (SGOT) 30 U/L (5-34); Albumin 3.5 g/dL (3.5-5.0); Alkaline Phosphatase 278 U/L (40-110); Anion Gap 16 mmol/L (10-20); BUN (Urea Nitrogen) 31 mg/dL (8.4-25.7); Bilirubin, Total 1.5 mg/dL (0.2-1.2); Calc. Creatinine Clearance 0 mL/min (70-130); Calcium 10.2 mg/dL (7.8-10.44); Carbon Dioxide 29 mmol/L (22-29); Chloride 96 mmol/L (98-107); Estimated GFR 8; Globulin 4.4 g/dL (2.4-3.5); Glucose 141 mg/dL (70-105); Lipase 28 U/L (8-78); Potassium 3.9 mmol/L (3.5-5.1); Protein, Total 7.9 g/dL (6.0-8.3); Sodium 137 mmol/L (136-145)
[2024-06-17] MEDS ORDERED: Iopamidol-370 76% 500 ML MDV (1 ML CHARGE) ONE (12:05)
== END 2024-06-17 11:08 | disposition home or self-care (01) ==
LOC: ERS 08:38
DX: R18.8 Other ascites (principal); I12.0 Hypertensive chronic kidney disease with stage 5 chronic kidney disease or end stage renal disease; E11.22 Type 2 diabetes mellitus with diabetic chronic kidney disease; N18.6 End stage renal disease; I63.9 Cerebral infarction, unspecified; Z99.2 Dependence on renal dialysis; Z95.0 Presence of cardiac pacemaker; Z87.891 Personal history of nicotine dependence; Z79.82 Long term (current) use of aspirin; Z79.899 Other long term (current) drug therapy
CPT/HCPCS: 74177; 80053; 83605; 83690; 85025; 96374; 96375; 99284; J1885; J2272; Q9967; 36415

== ENCOUNTER → 2024-06-17 11:10 | Emergency (ER) | payer MEDICARE, OTHER | END | disposition home or self-care (01) | LOC: ERS 11:10 | DX: Z48.00 Encounter for change or removal of nonsurgical wound dressing (principal) | CPT/HCPCS: 99282 ==

== ENCOUNTER 2024-07-07 16:35 | Emergency (ER) | payer MEDICARE, OTHER ==
[2024-07-07] MEDS ORDERED: Lidocaine 1% w/Epinephrine 1:100K 20 ML VIAL ONE (18:18)
[2024-07-07] MEDS ORDERED: HYDROcodone/Acetaminophen 10/325 mg Tablet ONE (19:31)
== END 2024-07-07 19:43 | disposition home or self-care (01) ==
LOC: ERS 16:35
DX: N49.2 Inflammatory disorders of scrotum (principal); I13.2 Hypertensive heart and chronic kidney disease with heart failure and with stage 5 chronic kidney disease, or end stage renal disease; I50.9 Heart failure, unspecified; N18.6 End stage renal disease; E11.22 Type 2 diabetes mellitus with diabetic chronic kidney disease; Z99.2 Dependence on renal dialysis; Z86.73 Personal history of transient ischemic attack (TIA), and cerebral infarction without residual deficits; Z87.891 Personal history of nicotine dependence; Z79.82 Long term (current) use of aspirin; Z79.899 Other long term (current) drug therapy
CPT/HCPCS: 10060; 76870; 93976

== ENCOUNTER 2024-07-09 15:54 | Emergency (ER) | payer MEDICARE, OTHER | END 2024-07-09 17:20 | disposition home or self-care (01) | LOC: ERS 15:54 | DX: Z48.00 Encounter for change or removal of nonsurgical wound dressing (principal); I13.2 Hypertensive heart and chronic kidney disease with heart failure and with stage 5 chronic kidney disease, or end stage renal disease; E11.22 Type 2 diabetes mellitus with diabetic chronic kidney disease; N18.6 End stage renal disease; I50.9 Heart failure, unspecified; Z99.2 Dependence on renal dialysis; Z86.73 Personal history of transient ischemic attack (TIA), and cerebral infarction without residual deficits; Z87.891 Personal history of nicotine dependence | CPT/HCPCS: 99282 ==

== ENCOUNTER 2024-10-25 16:40 | Inpatient (IN) | payer MEDICARE, MEDICAID ==
[2024-10-25 18:46] LABS: #Basophils 0.05 10x3/uL (0.0-0.2); %Basophils 1.4 % (0.0-1.0); %Eosinophils 1.1 % (0.0-10.0); %Monocytes 14.3 % (0.0-10.0); %Neutrophils 74.9 % (42.0-75.0); Hematocrit 33.3 % (42.0-52.0); Hemoglobin 10.7 g/dL (14.0-18.0); Mean Corpuscular HGB CONC 32.1 g/dL (32.0-36.0); Mean Corpuscular Hemoglobin 30.6 pg (27.0-31.0); Mean Corpuscular Volume 95.1 fL (78.0-98.0); Mean Platelet Volume 10.3 fL (7.4-10.4); Platelet Count 120 10x3/uL (130-400); RBC Distribution Width 16.8 % (11.5-14.5)
[2024-10-25 19:03] LABS: ALT (SGPT) 20 U/L (Less than 45); AST (SGOT) 40 U/L (11-34); Albumin 3.6 g/dL (3.1-4.5); Alkaline Phosphatase 229 U/L (40-110); Anion Gap 17 mmol/L (10-20); BUN (Urea Nitrogen) 47 mg/dL (8.4-25.7); Bilirubin, Total 1.9 mg/dL (0.3-1.2); Calc. Creatinine Clearance 0 mL/min (70-130); Calcium 10.4 mg/dL (7.8-10.44); Carbon Dioxide 27 mmol/L (22-29); Chloride 94 mmol/L (98-107); Estimated GFR 8; Globulin 4.3 g/dL (2.4-3.5); Glucose 120 mg/dL (70-105); Potassium 3.9 mmol/L (3.5-5.1); Protein, Total 7.9 g/dL (6.0-8.3); Sodium 134 mmol/L (136-145)
[2024-10-25] MEDS ORDERED: Acetaminophen 500 MG TAB ONE ×2 (20:42→20:43)
[2024-10-25] MEDS ORDERED: Benzonatate 100 MG CAP ONE (20:42)
[2024-10-25 21:29] LABS: Troponin I 0.448 ng/mL (< 0.028)
[2024-10-25] MEDS ORDERED: Ondansetron ODT 4 MG TAB PO PRN (21:41)
[2024-10-25] MEDS ORDERED: Dextrose 5% in Water 1,000 ML IV PRN (21:41)
[2024-10-25] MEDS ORDERED: Dextrose 50% Abboject 50 ML SYRINGE SLOW IVP PRN (21:41)
[2024-10-25] MEDS ORDERED: Glucagon 1 MG/ML KIT IM PRN (21:41)
[2024-10-25] MEDS ORDERED: Ondansetron PF 4 MG/2 ML Vial IVP PRN (21:41)
[2024-10-25] MEDS ORDERED: Bisacodyl 5 MG TAB PO PRN (21:41)
[2024-10-25] MEDS ORDERED: Insulin Lispro 100 UNIT/ML 10 ML VIAL SC PRN (21:44)
[2024-10-25] MEDS ORDERED: Oseltamivir 75 MG CAP ONE (22:03)
[2024-10-25 23:33] LABS: HBSAB Concentration 196.94 mIU/mL; HBsAg Index 0.21 S/CO (0-0.99); Hep B Core Total Ab NONREACTIVE (NonReactive); Hep B Surf AB REACTIVE (NonReactive); Hep B Surf Ag NONREACTIVE S/CO (NonReactive); Hep C IgG Ab NONREACTIVE S/CO (NonReactive); Hep C Index 0.08 S/CO (0-0.79)
[2024-10-26] MEDS ORDERED: Acetaminophen 325 MG TAB ONE (04:31)
[2024-10-26] MEDS ORDERED: Guaifenesin DM 100-10/5 ML UDCUP ONE (04:31)
[2024-10-26] MEDS: Acetaminophen 325 MG TAB PO PRN (05:10)
[2024-10-26] MEDS: Guaifenesin DM 100-10/5 ML UDCUP PO PRN (05:13)
[2024-10-26] MEDS: Oseltamivir 6 MG/ML ORAL SUSP PO SCH (06:00)
[2024-10-26 06:47] LABS: #Basophils 0.05 10x3/uL (0.0-0.2); %Basophils 1.4 % (0.0-1.0); %Eosinophils 1.7 % (0.0-10.0); %Lymphocytes 5.6 % (21.0-51.0); %Monocytes 16.4 % (0.0-10.0); %Neutrophils 74.6 % (42.0-75.0); Hematocrit 29.1 % (42.0-52.0); Hemoglobin 9.6 g/dL (14.0-18.0); Mean Corpuscular Hemoglobin 30.7 pg (27.0-31.0); Mean Platelet Volume 9.7 fL (7.4-10.4); Platelet Count 104 10x3/uL (130-400); RBC Distribution Width 16.9 % (11.5-14.5); Red Blood Cell (RBC) Count 3.13 mill/uL (4.70-6.10)
[2024-10-26 06:48] LABS: Actual Bicarbonate (HCO3v) 24.2 mEq/L (22-28); Analyzer IN Cardio ER; Chloride (VBG) 96 mmol/L (98-106); Hematocrit-VBG 35 % (42.0-52.0); Hemoglobin (Hb) 11.9 g/dL (13.1-17.2); Potassium (VBG) 3.63 mmol/L (3.70-5.30); Sodium 134 mmol/L (133-146); pH (venous) 7.521 (7.32-7.43)
[2024-10-26 06:56] LABS: ALT (SGPT) 19 U/L (Less than 45); AST (SGOT) 42 U/L (11-34); Albumin 3.4 g/dL (3.1-4.5); Alkaline Phosphatase 210 U/L (40-110); Anion Gap 15 mmol/L (10-20); BUN (Urea Nitrogen) 25 mg/dL (8.4-25.7); Bilirubin, Total 2.1 mg/dL (0.3-1.2); Calc. Creatinine Clearance 20 mL/min (70-130); Calcium 9.7 mg/dL (7.8-10.44); Carbon Dioxide 28 mmol/L (22-29); Chloride 97 mmol/L (98-107); Estimated GFR 13; Globulin 4.2 g/dL (2.4-3.5); Glucose 93 mg/dL (70-105); Potassium 3.5 mmol/L (3.5-5.1); Protein, Total 7.6 g/dL (6.0-8.3); Sodium 136 mmol/L (136-145)
[2024-10-26] MEDS ORDERED: Heparin 5,000 UNITS/ML VIAL ONE (09:25)
[2024-10-26] MEDS ORDERED: Aspirin Chewable 81 MG TAB ONE (09:25)
[2024-10-26] MEDS ORDERED: Amlodipine 5 MG TAB ONE (09:33)
[2024-10-26] MEDS ORDERED: Metoprolol Tartrate 50 MG TAB ONE (09:33)
[2024-10-26] MEDS: Aspirin Chewable 81 MG TAB PO SCH (11:43)
[2024-10-26] MEDS: Amlodipine 5 MG TAB PO SCH (11:43)
[2024-10-26] MEDS: Metoprolol Tartrate 50 MG TAB PO SCH (11:44)
[2024-10-26] MEDS: Heparin 5,000 UNITS/ML VIAL SC SCH (13:19)
[2024-10-26 14:10] VITALS: BMI 29.2
[2024-10-26] MEDS: FLU (Fluarix Triv) TS24-25(6MOS UP)/PF 45 MCG/0.5 ML Syringe IM ONE (18:06)
[2024-10-26] MEDS: Atorvastatin Calcium 40 MG TAB PO SCH (21:45)
[2024-10-27 05:34] LABS: Hematocrit 30.7 % (42.0-52.0); Mean Corpuscular HGB CONC 32.6 g/dL (32.0-36.0); Mean Corpuscular Hemoglobin 31.3 pg (27.0-31.0); Mean Corpuscular Volume 96.2 fL (78.0-98.0); Mean Platelet Volume 10.4 fL (7.4-10.4); Platelet Count 82 10x3/uL (130-400); Red Blood Cell (RBC) Count 3.19 mill/uL (4.70-6.10)
[2024-10-27 05:58] LABS: Band 7 % (5-11); Large Platelets 9.9 % (0-5); Lymphocytes 3 % (21-51); Monocytes 7 % (0-10); Neutrophil 79 % (42-75); Platelet Adequacy Comment Platelets Decreased; RBC Morphology Within Normal Limits; Smudge Cells 18.8 %
[2024-10-27 06:00] LABS: ALT (SGPT) 22 U/L (Less than 45); AST (SGOT) 62 U/L (11-34); Albumin 3.3 g/dL (3.1-4.5); Alkaline Phosphatase 236 U/L (40-110); Anion Gap 18 mmol/L (10-20); BUN (Urea Nitrogen) 41 mg/dL (8.4-25.7); Bilirubin, Total 1.8 mg/dL (0.3-1.2); Calc. Creatinine Clearance 14 mL/min (70-130); Calcium 9.4 mg/dL (7.8-10.44); Carbon Dioxide 25 mmol/L (22-29); Chloride 97 mmol/L (98-107); Estimated GFR 8; Globulin 4.1 g/dL (2.4-3.5); Glucose 92 mg/dL (70-105); Potassium 4.2 mmol/L (3.5-5.1); Protein, Total 7.4 g/dL (6.0-8.3); Sodium 136 mmol/L (136-145)
[2024-10-27] MEDS: Amlodipine 10 MG TAB PO SCH (09:33)
[2024-10-27] MEDS: Loperamide HCl 2 MG CAP PO PRN (17:58)
[2024-10-27] MEDS: EPOETIN ALFA-EPBX (ESRD) 10,000 UNITS/ML VIAL IVP SCH (17:58)
[2024-10-28 06:08] LABS: #Basophils 0.03 10x3/uL (0.0-0.2); %Basophils 0.8 % (0.0-1.0); %Eosinophils 6.1 % (0.0-10.0); %Monocytes 13.5 % (0.0-10.0); %Neutrophils 63.3 % (42.0-75.0); Hematocrit 29.7 % (42.0-52.0); Hemoglobin 9.7 g/dL (14.0-18.0); Mean Corpuscular HGB CONC 32.7 g/dL (32.0-36.0); Mean Corpuscular Hemoglobin 30.9 pg (27.0-31.0); Mean Corpuscular Volume 94.6 fL (78.0-98.0); Mean Platelet Volume 10.7 fL (7.4-10.4); Platelet Count 92 10x3/uL (130-400); RBC Distribution Width 16.6 % (11.5-14.5); Red Blood Cell (RBC) Count 3.14 mill/uL (4.70-6.10)
[2024-10-28 06:11] LABS: ALT (SGPT) 24 U/L (Less than 45); AST (SGOT) 58 U/L (11-34); Albumin 3.3 g/dL (3.1-4.5); Alkaline Phosphatase 272 U/L (40-110); Anion Gap 16 mmol/L (10-20); BUN (Urea Nitrogen) 37 mg/dL (8.4-25.7); Bilirubin, Total 1.3 mg/dL (0.3-1.2); Calc. Creatinine Clearance 17 mL/min (70-130); Calcium 9.3 mg/dL (7.8-10.44); Carbon Dioxide 22 mmol/L (22-29); Chloride 100 mmol/L (98-107); Estimated GFR 11; Globulin 4.3 g/dL (2.4-3.5); Glucose 102 mg/dL (70-105); Potassium 4.2 mmol/L (3.5-5.1); Protein, Total 7.6 g/dL (6.0-8.3); Sodium 134 mmol/L (136-145)
[2024-10-28] MEDS: Benzonatate 100 MG CAP PO PRN (20:14)
[2024-10-29 06:07] LABS: #Basophils Less than 0.03 10x3/uL (0.0-0.2); %Basophils 0.7 % (0.0-1.0); %Eosinophils 3.4 % (0.0-10.0); %Lymphocytes 23.5 % (21.0-51.0); %Monocytes 13.7 % (0.0-10.0); %Neutrophils 58.4 % (42.0-75.0); Hematocrit 30.6 % (42.0-52.0); Hemoglobin 10.3 g/dL (14.0-18.0); Mean Corpuscular HGB CONC 33.7 g/dL (32.0-36.0); Mean Corpuscular Hemoglobin 30.9 pg (27.0-31.0); Mean Corpuscular Volume 91.9 fL (78.0-98.0); Mean Platelet Volume 11.4 fL (7.4-10.4); Platelet Count 93 10x3/uL (130-400); RBC Distribution Width 16.2 % (11.5-14.5); Red Blood Cell (RBC) Count 3.33 mill/uL (4.70-6.10)
[2024-10-29 06:27] LABS: ALT (SGPT) 30 U/L (Less than 45); AST (SGOT) 64 U/L (11-34); Albumin 3.3 g/dL (3.1-4.5); Alkaline Phosphatase 260 U/L (40-110); Anion Gap 19 mmol/L (10-20); BUN (Urea Nitrogen) 51 mg/dL (8.4-25.7); Bilirubin, Total 1.4 mg/dL (0.3-1.2); Calc. Creatinine Clearance 13 mL/min (70-130); Calcium 9.2 mg/dL (7.8-10.44); Carbon Dioxide 18 mmol/L (22-29); Chloride 99 mmol/L (98-107); Estimated GFR 8; Globulin 4.1 g/dL (2.4-3.5); Glucose 72 mg/dL (70-105); Potassium 4.4 mmol/L (3.5-5.1); Protein, Total 7.4 g/dL (6.0-8.3); Sodium 132 mmol/L (136-145)
[2024-10-30 04:46] LABS: #Basophils Less than 0.03 10x3/uL (0.0-0.2); %Basophils 0.5 % (0.0-1.0); %Eosinophils 5.6 % (0.0-10.0); %Lymphocytes 21.4 % (21.0-51.0); %Monocytes 12.3 % (0.0-10.0); %Neutrophils 59.7 % (42.0-75.0); Hematocrit 29.4 % (42.0-52.0); Mean Corpuscular Hemoglobin 31.3 pg (27.0-31.0); Mean Corpuscular Volume 91.9 fL (78.0-98.0); Mean Platelet Volume 10.7 fL (7.4-10.4); Platelet Count 104 10x3/uL (130-400); RBC Distribution Width 16.1 % (11.5-14.5)
[2024-10-30 05:06] LABS: ALT (SGPT) 25 U/L (Less than 45); AST (SGOT) 49 U/L (11-34); Albumin 2.9 g/dL (3.1-4.5); Alkaline Phosphatase 244 U/L (40-110); Anion Gap 15 mmol/L (10-20); BUN (Urea Nitrogen) 39 mg/dL (8.4-25.7); Bilirubin, Total 1.2 mg/dL (0.3-1.2); Calc. Creatinine Clearance 18 mL/min (70-130); Calcium 8.6 mg/dL (7.8-10.44); Carbon Dioxide 23 mmol/L (22-29); Chloride 99 mmol/L (98-107); Estimated GFR 11; Globulin 3.8 g/dL (2.4-3.5); Glucose 85 mg/dL (70-105); Potassium 3.9 mmol/L (3.5-5.1); Protein, Total 6.7 g/dL (6.0-8.3); Sodium 133 mmol/L (136-145)
[2024-10-30 09:04] VITALS: BP 159/88; TEMP 97.3
== END 2024-10-30 13:12 | DRG 280 ==
LOC: ERS 16:40 → ERHOLD 21:39 → OBS 10-26 14:12 → OBSVTOIN 10-27 10:00
PROVIDERS: ADMIT Emergency Medicine; ATTEND Emergency Medicine
PROC: 5A1D70Z Performance of Urinary Filtration, Intermittent, Less than 6 Hours Per Day (ICD-10-PCS; principal; 2024-10-25)
DX: I13.2 Hypertensive heart and chronic kidney disease with heart failure and with stage 5 chronic kidney disease, or end stage renal disease (principal); I50.33 Acute on chronic diastolic (congestive) heart failure; I21.A1 Myocardial infarction type 2; N18.6 End stage renal disease; E87.70 Fluid overload, unspecified; E11.22 Type 2 diabetes mellitus with diabetic chronic kidney disease; E78.5 Hyperlipidemia, unspecified; I25.10 Atherosclerotic heart disease of native coronary artery without angina pectoris; J10.1 Influenza due to other identified influenza virus with other respiratory manifestations; Z66 Do not resuscitate; D63.1 Anemia in chronic kidney disease; I44.0 Atrioventricular block, first degree; Z99.2 Dependence on renal dialysis; Z95.1 Presence of aortocoronary bypass graft; Z95.810 Presence of automatic (implantable) cardiac defibrillator; Z88.8 Allergy status to other drugs, medicaments and biological substances; Z79.82 Long term (current) use of aspirin; Z79.02 Long term (current) use of antithrombotics/antiplatelets; Z79.899 Other long term (current) drug therapy; Z90.49 Acquired absence of other specified parts of digestive tract; Z98.52 Vasectomy status; Z89.421 Acquired absence of other right toe(s); Z86.73 Personal history of transient ischemic attack (TIA), and cerebral infarction without residual deficits
CPT/HCPCS: 36415; 36416; 71045; 80053; 82805; 83880; 84145; 84484; 85025; 86704; 86706; 86803; 87040; 87340; 87428; 90935; 93005; 96372; G0257; G0378; J1644; Q5105